=== PATIENT | male | born 1970 | race Caucasian/White ===

== ENCOUNTER → 2022-09-08 10:35 | Outpatient (CLI) | payer BC, SELFPAY ==
--- NOTE | 2022-09-08 10:38 | XR_ITS ---
FINAL REPORT CLINICAL HISTORY: suspected pna FINDINGS: PA and lateral views of the chest are obtained. There is no prior exam for comparison. The cardiac and mediastinal silhouettes are within normal limits. The lungs are clear. There is no pleural effusion, pneumothorax, or acute osseous abnormality. IMPRESSION: No radiographic evidence of acute cardiac or pulmonary disease. Reviewed, Interpreted and Dictated by Krys Armijo MD Transcribed by Mey Nesbitt Authenticated and [facility]
== END ==
PROVIDERS: PCP Family Medicine; Visit Provider Nurse Practitioner Family
DX: J18.9 Pneumonia, unspecified organism (principal)
CPT/HCPCS: 71046

== ENCOUNTER 2023-03-19 12:17 | Observation (INO) | payer BC, SELFPAY ==
[2023-03-19] VITALS (8 sets, daily range): BP systolic 125–144; BP diastolic 57–83; PULSE 94–104; RESP 16–18; TEMP 36.6–37.7; O2SAT 93–100; BMI 42.2; BMI 41.0
--- NOTE | 2023-03-19 12:51 | HMH.EDGENADL ---
Discharge Plan Disposition Patient Disposition: Admitted As Inpatient Clinical Impressions Clinical Impression: Cellulitis Discharge ED Provider: Alexey Gamez General Adult HPI General Chief complaint: Extremity Injury, Lower Stated complaint: referred by physican for blood clot,r lower leg Time Seen by Provider: 03/19/23 12:37 Mode of Arrival: Ambulatory Source of Information: Patient Limitations: No Limitations Description of Symptoms (Recalled from ER Triage Doc. by RN): Patient reports being seen at a [facility] in [place] today in regards to cellulitis in his right lower leg. While being seen there they notice that he was tender in his calf muscle and referred him to this er to get evaluated for a DVT. History of Present Illness HPI narrative: Patient is a 52-year-old male who presents emergency department for evaluation of swelling of his leg. Patient states that he was seen in urgent care today in [place] for redness and swelling of his distal lower extremity for which she was diagnosed with cellulitis, given 2 g of ceftriaxone and prescription for Keflex. Provider urgent care was concerned for possible DVT given that he has achiness of his calf and proximal right leg. Patient denies chest pain, shortness of breath, asymmetric swelling of the proximal lower extremities, discoloration of the proximal lower extremities, other acute complaints at this time. Related Data Home Medications Medication Instructions Recorded Confirmed empagliflozin 25 mg tablet 25 mg PO DAILY Diabetes 09/08/22 03/19/23 (Jardiance) metformin 1,000 mg tablet 1,000 mg PO BIDWMEAL Diabetes 09/08/22 03/19/23 amlodipine 10 mg tablet 10 mg PO DAILY High Blood Pressure 03/19/23 03/19/23 cephalexin 500 mg tablet 500 mg PO QID Infection 03/19/23 03/19/23 glipizide 10 mg tablet, extended 10 mg PO DAILY Diabetes 03/19/23 03/19/23 release 24 hr lisinopril 20 1 tab PO DAILY High Blood Pressure 03/19/23 03/19/23 mg-hydrochlorothiazide 12.5 mg tablet meloxicam 15 mg tablet 15 mg PO DAILY Pain 03/19/23 03/19/23 omeprazole 20 mg capsule,delayed 20 mg PO DAILY Acid Reflux 03/19/23 03/19/23 release simvastatin 80 mg tablet 80 mg PO HS Cholesterol 03/19/23 03/19/23 tamsulosin 0.4 mg capsule 0.4 mg PO DAILY Prostate 03/19/23 03/19/23 tirzepatide 15 mg/0.5 mL 15 mg SQ WEEKLY Weight Loss 03/19/23 03/19/23 subcutaneous pen injector (Hussein) Allergies Allergy/AdvReac Type Severity Reaction Status Date / Time doxycycline [DOXYCYCLINE] Allergy Unknown Verified 03/19/23 14:25 Penicillins [PENICILLINS] Allergy Unknown Verified 03/19/23 14:25 [facility] Disclaimer: The information contained in this section may have been updated after the patient was seen, as this information can be updated by other users. Social History (Updated 09/08/22 @ 10:06 by Marya Wilson MA) Smoking Status: Never smoker alcohol intake: never substance use type: denies use current occupational status: employed Travel in the last 8 weeks: None ROS Obtained: Yes Systems reviewed as appropriate & no additional complaints except as documented Physical Exam General General appearance: alert and in no apparent distress Head Head exam: atraumatic and normocephalic Eye Eye exam: Present PERRL and EOMI ENT ENT exam: Present mucous membranes moist Neck Neck exam: Present normal inspection Chest Chest inspection: Present normal inspection and symmetric chest wall rise Respiratory Respiratory exam: Present normal lung sounds bilaterally; Absent respiratory distress Cardiovascular Cardiovascular exam: Present regular rate and normal rhythm Abdominal Exam Abdominal exam: Present soft; Absent tenderness Extremities Exam Extremities exam: Present other (Large area of deep well-demarcated erythema over the right hernández) Neurological Exam Neurological exam: Present alert Psychiatric Psychiatric exam: Present normal affect Skin Skin exam: Present warm
--- NOTE | 2023-03-19 13:04 | CT_ITS ---
PROCEDURE INFORMATION: Exam: CTA Chest With Contrast Exam date and time: 03/19/2023 2:05 PM Age: 52 years old Clinical indication: Shortness of breath and other: Swellign and redness to right lower leg; Additional info: Tachy, leg pain TECHNIQUE: Imaging protocol: Computed tomographic angiography of the chest with contrast. Exam focused on the arteries. 3D rendering (Not supervised by radiologist): MIP and/or 3D reconstructed images were created by the technologist. Radiation optimization: All CT scans at this facility use at least one of these dose optimization techniques: automated exposure control; mA and/or kV adjustment per patient size (includes targeted exams where dose is matched to clinical indication); or iterative reconstruction. Contrast material: ISO 370; Contrast volume: 75 ml; Contrast route: INTRAVENOUS (IV); REPORTING DATA: Count of CT and Cardiac NM exams in prior 12 months: This patient has received 0 known CTs and 0 known cardiac nuclear medicine studies in the 12 months prior to the current study. COMPARISON: CR XR CHEST 2V 09/08/2022 10:50 AM FINDINGS: Pulmonary arteries: TheMain pulmonary trunk, right and left pulmonary arteries, interlobar branches and 1st order segmental branches are adequately opacified without filling defects or other evidence of acute pulmonary embolism. However more distal subsegmental branches cannot be adequately assessed due to technical limitations of the study. Aorta: Unremarkable. No aortic aneurysm. No aortic dissection. Lungs: Lung volumes are decreased likely in part due to body habitus. No infiltrates or overt CHF Pleural spaces: Unremarkable. No pneumothorax. No pleural effusion. Heart: Heart is not significantly enlarged. There are mild calcifications of the coronary arteries. No significant pericardial effusion. Lymph nodes: Unremarkable. No enlarged lymph nodes. Bones/joints: Unremarkable. No acute fracture. Soft tissues: Unremarkable. IMPRESSION: Technically limited but negative CT angiogram of the chest. No evidence of acute pulmonary embolism to major branches of the pulmonary vascular tree.
--- NOTE | 2023-03-19 13:32 | PC.NURSE ---
confirmed with [facility] in lab they have received pts blood specimens
[2023-03-19 13:40] LABS: Basophils # 0.1 K/mm3 (0-0.2); Basophils % 0.6 % (0.1-2.0); Eosinophils # 0.2 K/mm3 (0.0-0.4); Hematocrit 50.1 % (42.0-52.0); Hemoglobin 15.7 g/dL (14.1-18.0); Lymphocytes # 1.6 K/mm3 (0.7-4.5); Lymphocytes % 20.6 % (10-50); Mean Corpuscular HGB Conc 31.4 g/dL (31.8-35.4); Mean Corpuscular Hemoglobin 25.9 pg (27.0-31.2); Mean Corpuscular Volume 82.6 fl (80-94); Mean Platelet Volume 9.1 fl (7.4-10.4); Monocytes # 0.7 K/mm3 (0.1-1.0); Neutrophils # 5.2 K/mm3 (1.8-7.8); Neutrophils % 67.8 % (37.0-80.0); Platelet Count 252 K/mm3 (142-424); Red Blood Count 6.07 M/mm3 (4.60-6.20); Red Cell Distribution Width 16.1 % (11.5-17.5); White Blood Count 7.6 K/mm3 (4.8-10.8)
--- NOTE | 2023-03-19 13:40 | HMH.PHAINT1 ---
Pharmacy Intervention Comments: MEDICATION RECONCILIATION COMPLETED ON PATIENT USING EXTERNAL FILL HISTORY FROM PHARMACY. -BARRY SHOEMAKER, JEREMYD
--- NOTE | 2023-03-19 13:41 | PC.NURSE ---
Rounded on pt. No needs voiced at this time. Call light within reach.
[2023-03-19 13:42] LABS: Chloride 102 mmol/L (98-107); Potassium 3.7 mmoL/L (3.5-5.1); Sodium 136 mmol/L (136-145)
[2023-03-19 13:44] LABS: Blood Urea Nitrogen 14 mg/dl (9-20)
[2023-03-19 13:45] LABS: Alanine Aminotransferase 39 U/L (12-78); Albumin Level 3.9 g/dl (3.5-5.0); Albumin/Globulin Ratio 1.1 (1.1-1.8); Alkaline Phosphatase 95 U/L (38-126); Anion Gap 17.7 mEq/L (5-15); Aspartate Amino Transferase 32 U/L (17-59); Bilirubin,Total 0.5 mg/dl (0.2-1.3); Calcium 9.3 mg/dl (8.4-10.2); Carbon Dioxide 20 mmol/L (22.0-30.0); Creatinine Clearance Estimated 111 mL/min (50-200); Estimated Glomerular Filt Rate 89 ml/min (>60); GFR (African American) 108 ML/MIN (>60); Globulin 3.7 g/dL (1.3-3.2); Glucose 219 mg/dl (74-100); Total Protein,Serum 7.6 g/dl (6.3-8.2)
[2023-03-19 13:50] LABS: Lactic Acid 2.3 mmol/L (0.7-2.1)
--- NOTE | 2023-03-19 13:54 | EXP.PHA.CONS ---
Pharmacy Consult Date: 03/19/23 Time: 13:54 Referring provider: DR. DANIEL Reason for Consult:: VANCOMYCIN DOSING Allergies Allergy/AdvReac Type Severity Reaction Status Date / Time doxycycline [DOXYCYCLINE] Allergy Unknown Unverified 09/08/22 10:04 Penicillins [PENICILLINS] Allergy Unknown Unverified 09/08/22 10:04 Home Medications Medication Instructions Recorded Confirmed Type empagliflozin 25 mg tablet 25 mg PO DAILY Diabetes 09/08/22 03/19/23 History (Jardiance) metformin 1,000 mg tablet 1,000 mg PO BIDWMEAL Diabetes 09/08/22 03/19/23 History amlodipine 10 mg tablet 10 mg PO DAILY High Blood Pressure 03/19/23 03/19/23 History cephalexin 500 mg tablet 500 mg PO QID Infection 03/19/23 03/19/23 History glipizide 10 mg tablet, extended 10 mg PO DAILY Diabetes 03/19/23 03/19/23 History release 24 hr lisinopril 20 1 tab PO DAILY High Blood Pressure 03/19/23 03/19/23 History mg-hydrochlorothiazide 12.5 mg tablet meloxicam 15 mg tablet 15 mg PO DAILY Pain 03/19/23 03/19/23 History omeprazole 20 mg capsule,delayed 20 mg PO DAILY Acid Reflux 03/19/23 03/19/23 History release simvastatin 80 mg tablet 80 mg PO HS Cholesterol 03/19/23 03/19/23 History tamsulosin 0.4 mg capsule 0.4 mg PO DAILY Prostate 03/19/23 03/19/23 History tirzepatide 15 mg/0.5 mL 15 mg SQ WEEKLY Weight Loss 03/19/23 03/19/23 History subcutaneous pen injector (Mounjaro) New Prescriptions to Start Prescriptions: Height: 1.85 m Weight: 145.15 kg Laboratory Results:: Laboratory Results - last 24 hr 03/19/23 13:17: WBC 7.6, RBC 6.07, Hgb 15.7, Hct 50.1, MCV 82.6, MCH 25.9 L, MCHC 31.4 L, RDW 16.1, Plt Count 252, MPV 9.1, Neut % (Auto) 67.8, Lymph % (Auto) 20.6, Roosevelt % (Auto) 9.0, Eos % (Auto) 2.0, Baso % (Auto) 0.6, Neut # (Auto) 5.2, Lymph # (Auto) 1.6, Roosevelt # (Auto) 0.7, Eos # (Auto) 0.2, Baso # (Auto) 0.1, Sodium 136, Potassium 3.7, Chloride 102, Carbon Dioxide 20 L, Anion Gap 17.7 H, BUN 14, Creatinine 0.90, Estimated Creat Clear 111, Estimated GFR 89, Est GFR ( Amer) 108, Glucose 219 H, Lactate 2.3 H, Calcium 9.3, Total Bilirubin 0.5, AST 32, ALT 39, Alkaline Phosphatase 95, Total Protein 7.6, Albumin 3.9, Globulin 3.7 H, Albumin/Globulin Ratio 1.1 Assessment and Plan Assessment and plan all Dx Assessment and Plan for all problems:: Pharmacokinetic dosing service Objective: Patient: Floor: Age: 52 yo Serum creatinine: 0.90 mg/dL Height: 73.0 Inches Weight (kg): 145.2 Assessment: IBW (kg): 79.90 Dosing wt(kg): 145.2 Estimated Creatinine clearance (ml/min): 111.0 CRCL method: Cockcroft and Gault using ibw(default). Drug selected: Vancomycin Loading dose (mg): Vd (liters): 116.2 (factor used: 0.8 L/kg) Young (hr-1): 0.097 Half life (hrs): 7.15 CLvanco=?? 11.271 L/hr Recommended dose: 2000 mg Interval: 8 hrs Infusion time (hrs): 2.0 Predicted peak (mcg/mL): 29.0 Predicted trough (mcg/mL): 16.20 Total body weight is being used for vancomycin dosing. Recommendations: Give Vancomycin 2000 mg q 8 hrs with an expected Cpeak of 29.0 mcg/ml and an expected Ctrough of 16.20 mcg/ml AUC 0-24 /KENDELL Data: KENDELL 0.5 mcg/mL:?? AUC/KENDELL:? 1064.7 KENDELL 1.0 mcg/mL:?? AUC/KENDELL:? 532.3 --------- KENDELL 1.5 mcg/mL:?? AUC/KENDELL:? 354.9 KENDELL 2.0 mcg/mL:?? AUC/KENDELL:? 266.2 Thank you for the consult, will continue to follow. -JEREMY FORDED
--- NOTE | 2023-03-19 14:09 | PC.NURSE ---
Pt returned to room from RAD
--- NOTE | 2023-03-19 14:27 | PC.NURSE ---
no new complaints/ gave patient a bottle of water
--- NOTE | 2023-03-19 14:50 | PC.NURSE ---
Rounded on pt. No needs voiced at this time.
--- NOTE | 2023-03-19 15:04 | PC.NURSE ---
notified household refrigeration mechanic of admission
--- NOTE | 2023-03-19 15:14 | EXP.HP ---
History of Present Illness *Admission Date: 03/19/23 *Reason for visit:: leg pain and swelling *History of present illness: Mr. Nesbitt is a 52-year-old male with history of diabetes and obesity. States that he has had increased swelling and pain in his right leg for the past 2 to 3 days. Saw his PCP last Monday who recommended getting an ultrasound of his leg but did not start him on any antibiotics. He went to the [facility] today where he was given 2 g of ceftriaxone and started on Keflex orally. Complains of increasing redness and a well-defined region right lower leg mainly on the hernández. States he is also had pain up to his groin for the past several days preceding the redness. Denies any known history of DVTs. Has had cellulitis before, was concerned that is what this might be. Denies any significant trauma but did have exposure to chiggers with recent yard work over the past week or 2. Denies any fevers, chest pain, shortness of breath, nausea or vomiting. Work-up in the ER concerning for well-defined redness, lactate of 2.3, and cellulitis versus DVT. ER requested admission for observation overnight, IV antibiotics, and ultrasound in the morning to rule out DVT. On arrival to the floor, patient is hemodynamically stable on room air. [facility] Disclaimer: The information contained in this section may have been updated after the patient was seen, as this information can be updated by other users. Medical History (Updated 03/19/23 @ 17:28 by Kuldeep Munoz MD) Diabetes Hypertension Self-catheterizes urinary bladder Surgical History History of dilation of urethra Family History Family history of hypertension Family history of hyperlipidemia Social History Smoking Status: Never smoker alcohol intake: never substance use type: denies use current occupational status: employed Travel in the last 8 weeks: None Review of Systems Review of Systems Review of systems (narrative): 14 point review of systems performed, pertinent positives and negatives as per [facility] Meds Home Medications and Allergies Home Medications Medication Instructions Recorded Confirmed Type empagliflozin 25 mg tablet 25 mg PO DAILY Diabetes 09/08/22 03/19/23 History (Jardiance) metformin 1,000 mg tablet 1,000 mg PO BIDWMEAL Diabetes 09/08/22 03/19/23 History amlodipine 10 mg tablet 10 mg PO DAILY High Blood Pressure 03/19/23 03/19/23 History aspirin 81 mg tablet 81 mg PO DAILY heart health 03/19/23 03/19/23 History glipizide 10 mg tablet, extended 10 mg PO DAILY Diabetes 03/19/23 03/19/23 History release 24 hr lisinopril 20 1 tab PO DAILY High Blood Pressure 03/19/23 03/19/23 History mg-hydrochlorothiazide 12.5 mg tablet meloxicam 15 mg tablet 15 mg PO DAILY Pain 03/19/23 03/19/23 History omeprazole 20 mg capsule,delayed 20 mg PO DAILY Acid Reflux 03/19/23 03/19/23 History release simvastatin 80 mg tablet 80 mg PO HS Cholesterol 03/19/23 03/19/23 History tamsulosin 0.4 mg capsule 0.4 mg PO DAILY Prostate 03/19/23 03/19/23 History tirzepatide 15 mg/0.5 mL 15 mg SQ WEEKLY Weight Loss 03/19/23 03/19/23 History subcutaneous pen injector (Hussein) New Prescriptions to Start Prescriptions: Allergies Allergy/AdvReac Type Severity Reaction Status Date / Time doxycycline [DOXYCYCLINE] Allergy Unknown Verified 03/19/23 14:25 Penicillins [PENICILLINS] Allergy Unknown Verified 03/19/23 14:25 Exam Data for Last 24 hours Vital signs and Labs for Last 24 Hours: Temp Pulse Resp BP Pulse Ox O2 Del Method 97.9 F 99 H 16 136/81 96 Room Air 03/19/23 12:19 03/19/23 14:30 03/19/23 12:19 03/19/23 14:30 03/19/23 14:30 03/19/23 14:30 Laboratory Results - last 24 hr 03/19/23 13:17: WBC 7.6, RBC 6.07, Hgb 15.7, Hct 50.1, MCV 82.6, MCH 25.9 L, MCHC 31.4
--- NOTE | 2023-03-19 15:21 | PC.NURSE ---
Report called to Elsie on Med Surg.
[2023-03-19 15:39] LABS: Hemoglobin A1C 7.7 % (4.0-6.0)
--- NOTE | 2023-03-19 15:44 | PC.NURSE ---
Rounded on patient. No needs at this time. Patient resting.
[2023-03-19 17:02] LABS: POC Glucose,Bedside 134 (70-110)
[2023-03-19 17:35] LABS: Reflex Lactic Add Lactic Reflex
[2023-03-19 18:05] LABS: Lactic Acid Follow Up (RFLX 1) 1.1 mmol/L (0.7-2.1)
[2023-03-19 20:41] LABS: POC Glucose,Bedside 238 (70-110)
[2023-03-20 04:00] VITALS: BP 143/76; PULSE 99; RESP 18; TEMP 36.7; O2SAT 95; BMI 41.6
--- NOTE | 2023-03-20 04:23 | PC.NURSE ---
pt lower extremity swollen, red and hot to the touch, pt denies pain. us of extremity ordered in am. pt received abx's and lovenox
[2023-03-20 05:58] LABS: POC Glucose,Bedside 125 (70-110)
[2023-03-20 06:47] LABS: Basophils # 0.1 K/mm3 (0-0.2); Basophils % 0.7 % (0.1-2.0); Eosinophils # 0.2 K/mm3 (0.0-0.4); Eosinophils % 3.1 % (0.1-12.0); Hematocrit 48.2 % (42.0-52.0); Hemoglobin 15.1 g/dL (14.1-18.0); Lymphocytes # 1.7 K/mm3 (0.7-4.5); Lymphocytes % 25.2 % (10-50); Mean Corpuscular HGB Conc 31.3 g/dL (31.8-35.4); Mean Corpuscular Hemoglobin 25.9 pg (27.0-31.2); Mean Corpuscular Volume 82.8 fl (80-94); Mean Platelet Volume 9.1 fl (7.4-10.4); Monocytes # 0.7 K/mm3 (0.1-1.0); Monocytes % 9.9 % (1.7-9.3); Neutrophils # 4.2 K/mm3 (1.8-7.8); Neutrophils % 61.2 % (37.0-80.0); Platelet Count 237 K/mm3 (142-424); Red Blood Count 5.82 M/mm3 (4.60-6.20); Red Cell Distribution Width 16.2 % (11.5-17.5); White Blood Count 6.9 K/mm3 (4.8-10.8)
[2023-03-20 07:02] LABS: Alanine Aminotransferase 26 U/L (12-78); Albumin Level 3.6 g/dl (3.5-5.0); Albumin/Globulin Ratio 1.1 (1.1-1.8); Alkaline Phosphatase 101 U/L (38-126); Anion Gap 12.7 mEq/L (5-15); Aspartate Amino Transferase 22 U/L (17-59); Bilirubin,Total 0.2 mg/dl (0.2-1.3); Blood Urea Nitrogen 13 mg/dl (9-20); Calcium 8.7 mg/dl (8.4-10.2); Carbon Dioxide 24 mmol/L (22.0-30.0); Chloride 104 mmol/L (98-107); Creatinine Clearance Estimated 121 mL/min (50-200); Estimated Glomerular Filt Rate 102 ml/min (>60); GFR (African American) 124 ML/MIN (>60); Globulin 3.4 g/dL (1.3-3.2); Glucose 133 mg/dl (74-100); Potassium 3.7 mmoL/L (3.5-5.1); Sodium 137 mmol/L (136-145)
[2023-03-20 08:00] VITALS: BP 147/88; PULSE 93; RESP 16; TEMP 36.3; O2SAT 98
[2023-03-20 10:53] LABS: POC Glucose,Bedside 123 (70-110)
--- NOTE | 2023-03-20 11:38 | EXP.DC.SUM ---
General Admission date:: 03/19/23 Discharge date: 03/20/23 HPI HPI HPI: Mr. Nesbitt is a 52-year-old male with history of diabetes and obesity. States that he has had increased swelling and pain in his right leg for the past 2 to 3 days. Saw his PCP last Monday who recommended getting an ultrasound of his leg but did not start him on any antibiotics. He went to the [facility] today where he was given 2 g of ceftriaxone and started on Keflex orally. Complains of increasing redness and a well-defined region right lower leg mainly on the hernández. States he is also had pain up to his groin for the past several days preceding the redness. Denies any known history of DVTs. Has had cellulitis before, was concerned that is what this might be. Denies any significant trauma but did have exposure to chiggers with recent yard work over the past week or 2. Denies any fevers, chest pain, shortness of breath, nausea or vomiting. Work-up in the ER concerning for well-defined redness, lactate of 2.3, and cellulitis versus DVT. ER requested admission for observation overnight, IV antibiotics, and ultrasound in the morning to rule out DVT. On arrival to the floor, patient is hemodynamically stable on room air. Hospital Course Hospital Course Hospital Course: 52-year-old male with swelling and redness of his right leg. Concern for erysipelas versus DVT. Started on empiric antibiotics in the ED. Discussed case with ER physician, request admission for continued IV antibiotics, monitoring of clinical response and improvement, along with need for ultrasound that we are unable to perform on the weekend. Monitored overnight. Clinically improved with decreased redness and swelling of his leg with IV antibiotics. Ultrasound obtained showing no DVT. Medically stable for discharge home to complete treatment with oral antibiotics. Problems addressed during admission as follows: Erysipelas versus cellulitis versus DVT -Patient received 2 g ceftriaxone prior to admission. Administered at [facility] prior to coming to the hospital. Was started on vancomycin overnight. Had significant improvement in redness and swelling. Labs improved with stable leukocytosis. Improvement in pain and swelling. Was initiated on empiric Lovenox until ultrasound obtained. Ultrasound negative for DVT. No indication for further anticoagulation. Continue antibiotics with Keflex sent prior to arrival to hospital. Close follow-up with PCP within the next weeks to evaluate for resolution. Diabetes -A1c 7.7. Continue fingersticks and sliding scale insulin ACHS During admission. Continued Jardiance 25 mg daily during admission. Resume home regimen of glipizide, metformin, Mounjaro. Hypertension: Continue home lisinopril HCTZ combo. Held amlodipine. Continue home omeprazole for GERD Holding statin given right lower extremity pain Continue home tamsulosin 0.4 mg daily with in and out cathing per home regimen. Complete antibiotics with Keflex previously sent. Exam Data for Last 24 hours Vital signs and Labs for Last 24 Hours: Temp Pulse Resp BP Pulse Ox O2 Del Method 97.4 F L 93 H 16 147/88 H 98 Room Air 03/20/23 08:00 03/20/23 08:00 03/20/23 08:00 03/20/23 08:00 03/20/23 08:00 03/20/23 09:00 Laboratory Results - last 24 hr 03/19/23 13:17: WBC 7.6, RBC 6.07, Hgb 15.7, Hct 50.1, MCV 82.6, MCH 25.9 L, MCHC 31.4 L, RDW 16.1, Plt Count 252, MPV 9.1, Neut % (Auto) 67.8, Lymph % (Auto) 20.6, Darke % (Auto) 9.0, Eos % (Auto) 2.0, Baso % (Auto) 0.6, Neut # (Auto) 5.2, Lymph # (Auto) 1.6, Darke # (Auto) 0.7, Eos # (Auto) 0.2, Baso # (Auto) 0.1, Sodium 136, Potassium 3.7, Chloride 102, Carbon Dioxide 20 L, Anion Gap 17.7 H, BUN 14, Creatinine 0.90, Estimated Creat Clear 111, Estimated GFR 89, Est GFR ( Amer) 108, Glucose 219 H, Hemoglobin A1c 7.7 H, Lactate 2.3 H, Calcium 9.3, Total Bilirubin 0.5, AST 32, ALT 39, Alkaline Phosphatase 95, Total Protein 7.6, Albumin 3.9, Globulin 3.7
--- NOTE | 2023-03-20 17:30 | CA_ITS ---
FINAL REPORT TECHNIQUE: Color Doppler, duplex Doppler and compression sonography of the right lower extremity venous system was performed. CLINICAL HISTORY: swelling, DVT? COMPARISON: None FINDINGS: There is no evidence of deep venous thrombosis from the level of the groin to the calf. The veins are patent and compressible. IMPRESSION: No evidence of deep venous thrombosis right lower extremity. Reviewed, Interpreted and Dictated by Adrian Rdz III, MD Transcribed by Shruthi Blas Authenticated and [facility]
--- NOTE | 2023-03-21 13:44 | CARE MANAGER ---
Contacted patient related to hospital discharge. Patient aware of medication change and follow up doctor's appointment. Denies questions or concerns. EMILEE Grace
== END 2023-03-20 12:49 | disposition home or self-care (01) ==
LOC: ER 13:22 → 2ND 15:51
PROVIDERS: Admitting Provider Internal Medicine Adolescent Medicine; Emergency Provider Emergency Medicine; PCP Family Medicine; Visit Provider Internal Medicine Adolescent Medicine
DX: L03.115 Cellulitis of right lower limb (principal); I10 Essential (primary) hypertension; E11.65 Type 2 diabetes mellitus with hyperglycemia; Z79.4 Long term (current) use of insulin; Z79.899 Other long term (current) drug therapy; E66.01 Morbid (severe) obesity due to excess calories; Z68.41 Body mass index [BMI] 40.0-44.9, adult
CPT/HCPCS: 36415; 71275; 80053; 82962; 83036; 83605; 83735; 85025; 87040; 93971; 99285; G0378; J0696; J3370; Q9967

== ENCOUNTER 2025-01-07 08:42 | Outpatient (CLI) | payer BC, SELFPAY ==
--- NOTE | 2025-01-07 08:45 | XR_ITS ---
FINAL REPORT CLINICAL HISTORY: Foot Pain x 1 month COMPARISON: None FINDINGS: RIGHT FOOT Three views demonstrate no acute fracture or dislocation. There are minimal hypertrophic changes over the dorsal aspect of the intertarsal joints. No acute soft tissue abnormality is seen. There is a small plantar spur. IMPRESSION: Degenerative changes without acute bony abnormality. Reviewed, Interpreted and Dictated by Paresh Clancy MD Transcribed by Carol Fenton Authenticated and [facility]
--- NOTE | 2025-01-07 08:45 | XR_ITS ---
FINAL REPORT CLINICAL HISTORY: Foot Pain x 1 month COMPARISON: None FINDINGS: LEFT FOOT Three views demonstrate no acute fracture or dislocation. There is a prominent osteophyte along the dorsal aspect of the talonavicular joint. There is a moderate plantar spur. There is an os trigonum measuring 9 mm. No acute soft tissue abnormality is seen. IMPRESSION: No acute bony abnormality. Reviewed, Interpreted and Dictated by Paresh Clancy MD Transcribed by Carol Fenton Authenticated and [facility]
--- OUTSIDE RECORDS SUMMARY | 2025-01-07 08:57 | XMS_ITS | Data Portability ---
Author Organization [facility] BOOGIE Melendrez [facility] Address [address] [place] [address] Care Team Providers Care Private Duty Rn Name Role Phone TAMICALUCINDA Referring Provider Assessment No assessment recorded. Plan of Treatment Reminders Order Date Submit Date Provider Last Modified By Organization Details Last Modified Time Details Appointments None record ed. Lab None record ed. Referral None record ed. Procedures None record ed. Surgeries None record ed. Imaging None record ed. Medication Orders None record ed. Patient TargetsNo targets recorded. Patient Instructions Encounter Date Encounter Id Patient Instructions Last Modified By Organization Details Last Modified Time 11/29/2017 [id number] Lumbar MRI w/o from 11/14/17 reviewed showing diffuse degenerative disc disease with mild central canal stenosis at L5-S1 and moderate central canal stenosis at L4-L5. Moderate foraminal stenosis at L4-L5. Spent 20 total minutes with the patient today in counseling regarding information documented in my assessment and plan above. The time represents more than 50% of the encounter. [email or web address] Not available 12/04/2017 10:21:33 Reason for Referral None Reported. Medical Equipment None Reported. Allergies Allergen ID Allergen Name Allergen Category Reaction Reaction Severity Criticality Documentation Date Start Date Code Code System Note Provider Name and Address Organization Details Recorded Time 263463 Product containin g penicilli n (product) medicatio n Not available Not available Not available 11/29/2017 21380 8001 SNOMED Lizzy chávez [facility] 8 10:57:07 Medications Name Sig Start Date Stop Date Status Note LastModified by Organization Details LastModified Time lisinopril 20 mg-hydrochlorothiaz scott 12.5 mg tablet active Not Available Not Mireya ilable Not Available meloxicam 15 mg tablet active Not Available Not Available Not Available amlodipine 5 mg tablet active Not Available Not Available Not Available tramadol 50 mg tablet active Not Available Not Available Not Available simvastatin 40 mg tablet active Not Available Not Available Not Available meloxicam 7.5 mg tablet active Not Available Not Available Not Available metformin 1,000 mg tablet active Not Available Not Available Not Available omeprazole 20 mg capsule,delayed release active Not Available Not Available Not Available diclofenac sodium 75 mg tablet,delayed release active Not Available Not Available Not Available methylprednisolone 4 mg tablets in a dose pack active Not Available Not Available No t Available cyclobenzaprine 5 mg tablet active Not Available Not Available No t Available Tradjenta 5 mg tablet active Not Available Not Available Not Available Jardiance 25 mg tablet active Not Available Not Available Not Available Trulicity 1.5 mg/0.5 mL subcutaneous pen injector active Not Available Not Available Not Available Vitals Date Recorded Body height Body mass index (BMI) Body weight Systolic blood pressure Diastolic blood pressure Provider Name and Address Organization Details Last Updated DateTime 11/29/2017 185.42 cm 42.4 kg/m2 992488.1 5 g 140 mm[Hg] 90 mm[Hg] Lizzy Singh [facility] 8 10:56:54 Social History Question Answer Notes LastModified by Organizat ion Details LastModified Time Tobacco Smoking Status Never Smoker Lizzy Singh [facility] 11/29/2017 10:57:15 What Was The Date Of Your Most Recent Tobacco Screening? 11/29/2017 Information n ot available 08/27/2019 Sex: Unknown Functional Status None recorded. Mental Status None recorded. Family History Nothing Reported. Medical History Condition Response Diabetes Y Arthritis Y High Cholesterol Y Hypertension Y Past Encounters Encounter ID Performer Location Encounter Start Date Encounter Closed Date Diagnosis/Indication Diagnosis SNOMED-CT Code Diagnosis ICD10 Code Diagnosis Note [id number] PARMINDER CRAWFORD PA-C [facility] CL[facility] [address] [place] [address] 11/29/2017 09:56:48 12/05/2017 11:36:34 Pain of right hip joint [id number] 17385 M25.551 Mr. Nesbitt does have a prominent disc bulge at L4-5 with moderate central canal stenosis at and moderate foraminal stenosis, but this is unlikely to be causing his right hip pain or right ankle pain. We will order right hip xrays. We will refer him to an orthopedic doctor for evaluation and treatment. Pain of cl int of ankle and/or foot [id number] M25.571 We will order right ankle xrays. We will refer him to an orthopedic doctor for evaluation and treatment. He will follow up as needed. He is happy with the plan. The patient was seen and examined by Dr. Cadet and myself. He agrees with the plan as stated above. Health Concerns Section Related Observation LastModified by Organization Detai ls LastModified Time None Recorded Concern Status LastModified by Organization Details LastModified Time None Recorded Advance Directives Directive None Recorded Payers Insurance Date Sequence Insurance Name Policy Number Policy [place] Covered Member ID [place] Member ID Guarantor Name 12/19/2017 1 [place] [id number] Carisa Nesbitt [id number] Apolinar Nesbitt Notes Date Note Type Note Provider Name and Address Organization Details Recorded Time 11/29/2017 text/html Mr. Nesbitt is a [age] YO WM here today as a new patient referral from Dr. Lucinda Lo for 6 week hx of pain in the right hip and right ankle. Rates the hip pain as 5/10 and the ankle pain as 8/10 and both are sharp/tight in nature. Both are better with sitting and worse with standing and walking. If his daughter pulls traction on his right leg, his hip pain decreases. He states he occasionally has achy LBP, but does not think the hip or ankle pain are related to the back pain. He denies any radicular leg symptoms or radiating pain from the back. He fell from a truck last year and suffered an L1 compression fracture which was treated with a brace. Denies any recent trauma since symptom onset. Denies b/b incontinence and saddle paresthesias. He has been to the chiropractor for his back, taken a medrol dospak, used NSAIDs x 6 weeks, and had a steriod injection from his PCP which have not helped his symptoms. He presents with a lumbar MRI w/o from 11/14/17. PARMINDER CARWFORD PA-C [facility] [place], [address], [facility] 12/04/2017 10:22:19
--- OUTSIDE RECORDS SUMMARY | 2025-01-07 08:57 | XMS_ITS | Clinical Summary ---
Author Organization [facility] Address [address] [place] [address] Care Team Providers Care Title Closer Name Role Phone Pascual Mckeon MD Primary Care Provider [phone] Allergies Active Allergy Reactions Criticality Noted Date Comments Penicillins Rash Low 12/30/2021 Medications triamcinolone (Kenalog) 0.1 % cream 2 Active Mounjaro 2.5 MG/0.5ML solution pen-injector solution pen-injector ADMINISTER 2.5 MG UNDER THE SKIN 1 TIME EVERY WEEK DIRECTED 3 Active tamsulosin (Flomax) 0.4 MG 24 hr capsule 3 Active simvastatin (Zocor) 80 MG tablet Take 1 tablet (80 mg) by mouth every night. 3 Active sildenafil (Viagra) 100 MG tablet Take 1 tablet (100 mg) by mouth if needed. Active pioglitazone (Actos) 30 MG tablet 2 Active omeprazole (PriLOSEC) [address] capsule Take 1 capsule (20 mg) by mouth 1 (one) time each day. 3 Active metFORMIN (Glucophage) 1000 MG tablet Take 1 tablet (1,000 mg) by mouth 2 (two) times a day with meals. 3 Active meloxicam (Mobic) 15 MG tablet Take 1 tablet (15 mg) by mouth 1 (one) time each day. 3 Active lisinopril-hydr oCHLOROthiazide 20-12.5 MG tablet Take 1 tablet by mouth 1 (one) time each day. 3 Active HYDROcodone-evette taminophen ([place]) 5-325 MG tablet TAKE 1 TABLET BY MOUTH EVERY 6 TO 8 HOURS NEEDED FOR PAIN 3 Active glipiZIDE XL (Glucotrol XL) 10 MG 24 hr tablet Take 1 tablet (10 mg) by mouth 1 (one) time each day. 3 Active Jardiance 25 MG Take 1 tablet (25 mg) by mouth 1 (one) time each day. 3 Active cyclobenzaprine (Flexeril) 10 MG tablet TAKE 1 TABLET BY MOUTH EVERY 8 HOURS NEEDED FOR MUSCLE SPASMS 3 Active clobetasol (Temovate) 0.05 % ointment 3 Active aspirin 81 MG EC tablet Take 1 tablet (81 mg) by mouth 1 (one) time each day. Active amLODIPine (Norvasc) 10 MG tablet Take 1 tablet (10 mg) by mouth 1 (one) time each day. 3 Active Social History Tobacco Use Types Packs/Day Years Used Date Smoking Tobacco: Never Smokeless Tobacco: Never Tobacco Cessation:Counseling Given: Not Answered Alcohol Use Standard Drinks/Week Comments Never 0 (1 standard drink = 0.6 oz pur e alcohol) PHQ-2 Answer Date Recorded Patient Health Questionnaire-2 Score 0 01/23/2023 PHQ-2A Answer Date Recorded Patient Health Questionnaire-2 Score 0 01/23/2023 Sex and Gender Information Value Date Recorded Sex Assigned at Not on file Legal Sex Male 7:56 PM EDT Gender Identity Not on file Sexual Orientation Not on file Last Filed Vital Signs Vital Sign Reading Time Taken Comments Blood Pressure 126/81 01/23/2023 1:43 PM EDT Pulse 101 01/23/2023 1:43 PM EDT Temperature - - Respiratory Rate - - Oxygen Saturation - - Inhaled Oxygen Concentration - - Weight 144 kg (317 lb 7.4 oz) 01/23/2023 1:43 PM EDT Height 185.4 cm (6' 1 ) 01/23/2023 1:43 PM EDT Body Mass Index 41.88 01/23/2023 1:43 PM EDT Plan of Treatment Health Maintenance Due Date Last Done Comments [facility]-Depression Screening 1972 [facility]-Infant/Child/Adol SDOH Screenings 1972 [facility]- SDOH Screenings 1990 [facility]-Adult SDOH Screenings 1990 [facility]-DTaP,Tdap,and Td Vaccine s (1 - Tdap) 1991 [facility]-Hepatitis B Vaccines (1 of 3 - 19+ 3-dose series) 1991 CT Colonography 2017 Colonoscopy 2017 FIT-DNA 2017 FIT 2017 FOBT 2017 Sigmoidoscopy 2017 [facility]-Colorectal Cancer Screening 2017 [facility]-Pneumococcal Vaccine: 50 + Years (1 of 1 - PCV) 2022 [facility]-Zoster Vaccines (1 of 2) 2022 [id number] Vaccine (1 - 20 24-25 season) 2024 [facility]-Influenza Vaccine ([place] n Ended) 2025 HPV Vaccines Aged Out No longer eligi ble based on patient's age to complete this topic [facility]-HIB Vaccines Aged Out No longer e ligible based on patient's age to complete this topic [facility]-Hepatitis A Vaccines Aged Out No longer eligible based on patient's age to complete this topic [facility]-IPV Vaccines Aged Out No longer e ligible based on patient's age to complete this topic [facility]-Rotavirus Vaccines Aged Out No lo nger eligible based on patient's age to complete this topic Insurance [facility] [place] [id number] [employer] [id number] MOE Care Teams Title Closer Relationship Specialty Start Date End Date Pascual Mckeon MD [address] [place] [address] [address] [place] [address] PCP - General 11/20/20
--- OUTSIDE RECORDS SUMMARY | 2025-01-07 08:57 | XMS_ITS | Encounter Summary ---
Author Organization Healthcare Address [address] [place] [address] Care Team Providers Care Hose Tester Name Role Phone Pascual Mckeon MD Primary Care Provider [phone] Encounter Details Date Type Department Care Team (Late st Contact Info) Description 10/05/2022 Orders Only External Location [address] [place] [address] Provider, External Social History Tobacco Use Types Packs/Day Years Used Date Smoking Tobacco: Never Assessed Sex and Gender Information Value Date Recorded Sex Assigned at Not on file Legal Sex Male 7:56 PM EDT Gender Identity Not on file Sexual Orientation Not on file documented as of this encounter Plan of Treatment Not on file documented as of this encounter Procedures Procedure Name Priority Date/Time Associated Diagnosis Comments FL RUG 10/05/2022 2:24 PM EDT documented in this encounter Results * FL RUG (10/05/2022 2:24 PM EDT) Anatomical Region Laterality Modality Body Radiographic Mindy ging 10/05/2022 2:24 PM EDT us External Provider IMG FLUOROSCOPY PROCEDURES Fin al Result documented in this encounter Visit Diagnoses Not on filedocumented in this encounter Care Teams Hose Tester Relationship Specialty Start Date End Date Pascual Mckeon MD [address] [place] [address] [address] [place] [address] PCP - General 11/20/20 documented as of this encounter
== END 2025-01-07 23:59 | disposition home or self-care (01) ==
LOC: RAD 08:43
PROVIDERS: PCP Family Medicine; Visit Provider Podiatrist
DX: M19.071 Primary osteoarthritis, right ankle and foot (principal)
CPT/HCPCS: 73630

== ENCOUNTER 2025-01-13 17:48 | Emergency (ER) | payer BC, SELFPAY ==
--- OUTSIDE RECORDS SUMMARY | 2025-01-13 18:35 | XMS_ITS | Data Portability ---
Author Organization [facility] BOOGIE Melendrez [facility][NOTE 3] Address [address] [place] [address] Care Team Providers Care Benefits Consultant Name Role Phone LUCINDA LO Referring Provider Assessment No assessment recorded. Plan [...] By Organization Details Last Modified Time 11/29/2017 [id number] Lumbar MRI w/o from 11/14/17 reviewed showing diffuse degenerative disc disease with mild central canal stenosis at L5-S1 and moderate central canal stenosis at L4-L5. Moderate foraminal stenosis at L4-L5. Spent 20 total minutes with the patient today in counseling regarding information documented in my assessment and plan above. The time represents more than 50% of the encounter. [email or web address] Not available 12/04/2017 10:21:33 Reason for Referral None Reported. Medical Equipment None Reported. Allergies Allergen ID Allergen Name Allergen Category Reaction Reaction Severity Criticality Documentation Date Start Date Code Code System Note Provider Name and Address Organization Details Recorded Time 625773 Product containin g penicilli n (product) medicatio n Not available Not available Not available 11/29/2017 57817 8001 SNOMED Lizzy chávez [facility] 8 10:57:07 Medications Name Sig Start Date [...] Body mass index (BMI) Body weight Systolic And Diastolic Provider Name and Address Organization Details Last Updated DateTime 11/29/2017 185.42 cm 42.4 kg/m2 661143.15 g 140/90 mm[Hg] Lizzy Singh [facility] 11/29/2017 10:56:54 Social History Question Answer Notes LastModified by Organizat ion Details LastModified Time Tobacco Smoking Status Never Smoker Lizzy Singh [facility] 11/29/2017 10:57:15 What Was The Date Of Your Most Recent Tobacco Screening? 11/29/2017 Information n ot available 08/27/2019 Sex: Unknown Functional Status None recorded. Mental Status None recorded. Family History Nothing Reported. Medical History Condition Response Arthritis Y High Cholesterol Y Diabetes Y Hypertension Y Past Encounters Encounter ID Performer Location Encounter Start Date Encounter Closed Date Diagnosis/Indication Diagnosis SNOMED-CT Code Diagnosis ICD10 Code Diagnosis Note [id number] PARMINDER CRAWFORD PA-C [facility] [address] [place] [address] 11/29/2017 09:56:48 12/05/2017 11:36:34 Pain of right hip joint [id number] 00610 M25.551 Mr. Nesbitt does have a prominent disc bulge at L4-5 with moderate central canal stenosis at and moderate foraminal stenosis, but this is unlikely to be causing his right hip pain or right ankle pain. We will order right hip xrays. We will refer him to an orthopedic doctor for evaluation and treatment. Pain of cl int of ankle and/or foot [id number] M25.571 We will order right ankle xrays. [...] ID Guarantor Name 12/19/2017 1 [place] [id number] Carisa Nesbitt [id number] Apolinar Nesbitt Notes Date Note Type [...] a lumbar MRI w/o from 11/14/17. PARMINDER CRAWFORD PA-C [address] [place] [address], [phone], [facility] 12/04/2017 10:22:19
--- OUTSIDE RECORDS SUMMARY | 2025-01-13 18:35 | XMS_ITS | Clinical Summary ---
Author Organization [facility] Address [address] [place] [address] Care Team Providers Care Completion Manager Name Role Phone Pascual Mckeon MD Primary Care Provider [phone] Allergies Active Allergy Reactions Criticality Noted Date [...] time each day. 3 Active HYDROcodone-evette taminophen ([place]) 5-325 MG tablet TAKE 1 TABLET BY [...] 2022 [facility]-Zoster Vaccines (1 of 2) 2022 [id number] Vaccine (1 - 20 24-25 season) 2024 [facility]-Influenza Vaccine (#1) 2025 HPV Vaccines Aged Out No longer [...] patient's age to complete this topic Insurance [facility] [place] [id number] [employer] [id number] MOE Care Teams Completion Manager Relationship Specialty Start Date End Date Pascual Mckeon MD [address] [place] [address] [address] [place] [address] PCP - General 11/20/20
--- OUTSIDE RECORDS SUMMARY | 2025-01-13 18:35 | XMS_ITS | Encounter Summary ---
Author Organization Healthcare Address [address] [place] [address] Care Team Providers Care Program Manager Slp Name Role Phone Pascual Mckeon MD Primary Care Provider [phone] Encounter Details Date Type Department Care Team (Late st Contact Info) Description 10/05/2022 Orders Only External Location [address] [place] [address] Provider, External Social History Tobacco Use Types [...] on filedocumented in this encounter Care Teams Program Manager Slp Relationship Specialty Start Date End Date Pascual Mckeon MD [address] [place] [address] [address] [place] [address] PCP - General 11/20/20 documented as of this encounter
--- NOTE | 2025-01-13 18:45 | PC.NURSE ---
DR ANDREA AT BEDSIDE
[2025-01-13 18:46] VITALS: BP 144/81; PULSE 88; RESP 18; TEMP 36.8; O2SAT 98; BMI 44.9
--- NOTE | 2025-01-13 18:58 | ED_ITS ---
Discharge Plan Disposition Patient Disposition: Home, Self-Care Prescriptions Prescriptions: No Action simvastatin 80 mg tablet PO Patient Comments: TAKE 1 TABLET BY MOUTH ONCE DAILY AT NIGHT Humulin 70/30 U-100 KwikPen 100 unit/mL (70-30) insulin pen SQ Patient Comments: INJECT 80 UNITS SUBCUTANEOUSLY WITH BREAKFAST AND 40 WITH SUPPER Ozempic 2 mg/dose (8 mg/3 mL) pen injector SQ azithromycin [Zithromax Z-Holland] 250 mg tablet See Rx Instructions PO .COMPLEX Qty: 6 0RF Rx Instructions: For 250 mg dose pack: take 500 mg today (day 1), then 250 mg for 4 days (days 2-5) PO fluticasone propionate 50 mcg/actuation spray,suspension 1 spray intranasal DAILY Qty: 16 0RF Rx Instructions: administer into each nostril guaifenesin 1,200 mg tablet extended release 12hr 1,200 mg PO BID Qty: 20 0RF metformin 1,000 mg tablet 1,000 mg PO BIDWMEAL lisinopril-hydrochlorothiazide 20-12.5 mg tablet 1 tab PO DAILY Patient Comments: TAKE 1 TABLET BY MOUTH DAILY glipizide 10 mg tablet extended release 24hr 10 mg PO DAILY Patient Comments: TAKE 1 TABLET BY MOUTH DAILY meloxicam 15 mg tablet 15 mg PO DAILY Patient Comments: TAKE 1 TABLET BY MOUTH DAILY tamsulosin 0.4 mg capsule 0.4 mg PO DAILY Patient Comments: TAKE 1 CAPSULE BY MOUTH DAILY amlodipine 10 mg tablet 10 mg PO DAILY Patient Comments: TAKE 1 TABLET BY MOUTH DAILY omeprazole 20 mg capsule,delayed release(DR/EC) 20 mg PO DAILY Patient Comments: TAKE 1 CAPSULE BY MOUTH DAILY aspirin 81 mg Tablet 81 mg PO DAILY Referrals Follow up/Referrals: Dejon Lund MD [Primary Care Provider, Medical] - See instructions Activity Restrictions/Add. Instructions Additional Instructions/Restrictions: Follow-up with Dr. Lund to discuss further options for better glucose control. Continue taking your insulin as prescribed. If you develop any new or worsening symptoms, or if you become concerned for your health for any reason, return to the emergency department for evaluation. Clinical Impressions Clinical Impression: Hyperglycemia, Dizziness Print Language Print Language: Luxembourgish Discharge ED Provider: Ganga Leos Adult [facility] General Chief complaint: Dizziness Stated complaint: Diaabetic sugar 408,dizzy Time Seen by Provider: 01/13/25 18:35 Mode of Arrival: Ambulatory Source of Information: Patient Description of Symptoms (Recalled from ER Triage Doc. by RN): PT REPORTS ELEVATED GLUCOSE 408, STATES HE FELT DIZZY THIS AM WHEN HE LOOKS DOWN. REPORTS GLUCOSE HAS BEEN VERY UNCONTROLLED WITH CHANGES IN INSULIN History of Present Illness HPI narrative: Apolinar Nesbitt is a 54y male with a history of insulin-dependent diabetes on 80 mg of Humalog in the morning and 40 mg of Humalog at night as well as metformin who presents to the emergency department for complaints of high glucose readings and dizziness. Patient states that his glucose has not been well-controlled recently and he had his Humalog increased. He states that his glucose tends to run in the 200s, however this evening, his glucose was 408. He also reports some dizziness but denies any chest pain, shortness of breath, abdominal pain, nausea, vomiting or diarrhea. Related Data Home Medications ?Medication ?Instructions ?Recorded ?Confirmed metformin 1,000 mg tablet 1,000 mg PO BIDWMEAL Diabete s 09/08/22 01/05/25 amlodipine 10 mg tablet 10 mg PO DAILY High Blood Pr essure 03/19/23 01/05/25 aspirin 81 mg tablet 81 mg PO DAILY heart health 03/19/23 01/05/25 glipizide 10 mg tablet, extended 10 mg PO DAILY Diabet es 03/19/23 01/05/25 release 24 hr lisinopril 20 1 tab PO DAILY High Blood Pr essure 03/19/23 01/05/25 mg-hydrochlorothiazide 12.5 mg tablet meloxicam 15 mg tablet 15 mg PO DAILY Pain 03/19/23 01/05/25 omeprazole 20 mg capsule,delayed 20 mg PO DAILY Acid R eflux 03/19/23 01/05/25 release tamsulosin 0.4 mg capsule 0.4 mg PO DAILY Prostate 05/0101/05/25 insulin NPH-regular 70-30 U-100 SQ 01/05/25 01/05/25 insulin 100 unit/mL subcutaneous pen (Humulin 70/30 U-100 Glenda) semaglutide 2 mg/dose (8 mg/3 mL) mg SQ 01/05/2501/05 subcutaneous pen injector (Ozempic) simvastatin 80 mg tablet mg PO 01/05/25 01/05/25 Previous Rx's ?Medication ?Instructions ?Recorded azithromycin 250 mg tablet See Rx Instructions PO .COM PLEX #6 01/05/25 (Zithromax Z-Holland) tabs fluticasone propionate 50 1 spray intranasal DAILY #16 grams 01/05/25 mcg/actuation nasal spray,suspension guaifenesin 1,200 mg tablet, 1,200 mg PO BID #20 tabs 01/05/25 extended release 12 hr Allergies Allergy/AdvReac Type Severity Reaction Status Date / Time doxycycline (DOXYCYCLINE) Allergy Mild Hives Verified 01/05/25 12:49 Penicillins (PENICILLINS) Allergy Unknown Hives Ver[facility]05[facility]25 12[facility] Disclaimer: The information contained in this section may have been updated after the patient was seen, as this information can be updated by other users. Medical History Self-catheterizes urinary bladder Hypertension Diabetes Surgical History History of dilation of urethra Family History Other Family history of hyperlipidemia Family history of hypertension Social History Smoking Status: Never smoker alcohol intake: never substance use type: denies use current occupational status: employed Travel in the last 8 weeks?: None Have you lived/traveled outside US in past 30 days?: No Contact w/someone who lives/traveled outside US past 30 days?: No Exposure to someone with infectious disease in past 14 days?: No Do you have a fever (greater than 100.4 F or 38 C)?: No Have you tested positive for COVID-19?: No Exposed to someone with COVID-19 in past 14 days?: No Do you have a sore throat?: No Do you have a cough?: No Do you have any weakness?: No Do you have any diarrhea?: No Are you experiencing any unusual bleeding?: No Do you have any muscle aches/pain?: No Do you have any abdominal pain?: No Are you experiencing loss of taste or smell?: No ROS Obtained: Yes Systems reviewed as appropriate & no additional complaints except as documented Physical Exam General General appearance: alert, in no apparent distress and obese Head Head exam: atraumatic Eye Eye exam: Present normal appearance ENT ENT exam: Present normal external ear exam Neck Neck exam: Present full ROM Chest Chest inspection: Present symmetric chest wall rise Respiratory Respiratory exam: Present normal lung sounds bilaterally; Absent respiratory distress, wheezes or stridor Cardiovascular Cardiovascular exam: Present regular rate and normal rhythm Abdominal Exam Abdominal exam: Present soft; Absent tenderness or guarding exam: Present deferred Extremities Exam Extremities exam: Present normal inspection Back Exam Back exam: Present normal inspection Neurological Exam Neurological exam: Present alert and oriented X3 Psychiatric Psychiatric exam: Present normal affect Skin Skin exam: Present warm and dry Medical Decision Making Medical Records Screening: Per USPSTF and CDC recommendations, given the prevalence of disease in our region, it is our hospital?s policy to screen for HIV and viral Hepatitis for all patients aged 18 and over and those with ongoing risk factors. Sree Inquiry Pt receiving controlled substance: No Vital Signs: 01/13/25 18:46 Temperature 98.2 F Temperature Source Oral Pulse Rate [Radial] 88 Respiratory Rate 18 Blood Pressure [Left Arm] 144/81 H Blood Pressure Mean [Left Arm] 102 Blood Pressure Source [Left Arm] Automatic Cuff Blood Pressure Position [Left Arm] Sitting 02 Sat by Pulse Oximetry 98 Oxygen Delivery Method Room Air Lab Data Lab Results 01/13/25 19:08: WBC 8.0, RBC 5.15, Hgb 14.1, Hct 43.5, MCV 84.5, MCH 27.4, MCHC 32.4, RDW 14.8, Plt Count 212, MPV 11.1 H, Neut % (Auto) 57.3, Lymph % (Auto) 25.6, [place] % (Auto) 8.4, Eos % (Auto) 6.0, Baso % (Auto) 1.1, Neut # (Auto) 4.6, Lymph # (Auto) 2.1, [place] # (Auto) 0.7, Eos # (Auto) 0.5 H, Baso # (Auto) 0.1, VBG pH 7.38, VBG pCO2 34.7 L, VBG pO2 84.3 H, VBG HCO3 20.1 L, VBG Total CO2 21.2 L, VBG O2 Saturation 97.0 H, VBG Base Excess -5.0 L, VBG Lactic Acid 1.5, S odium 135 L, Potassium 4.6, Chloride 99, Carbon Dioxide 24, Anion Gap 16.6 H, BUN 18, Creatinine 0.90, Estimated Creat Clear 109, Estimated GFR 89, Est GFR ( Amer) 107, Glucose 209 H, Calcium 8.3 L, Magnesium 1.7, Total Bilirubin 0.5, AST 41, ALT 49, Alkaline Phosphatase 81, Total Protein 7.3, Albumin 4.4, Globulin 2.9, Albumin/Globulin Ratio 1.5 01/13/25 19:08 01/13/25 19:08 Orders (Tests/Meds): ORDERS Category Date Time Status B-Hydroxybutyrate Stat Lab 01/13/25 19:08 Received CBC w/Auto Diff [Complete Blood Count Auto Diff] Stat Lab 01/13/25 19:08 Completed CMP [Comprehensive Metabolic Panel] Stat Lab 01/13/25 19:08 Completed HIV Combo Stat Lab 01/13/25 19:08 Received Hepatitis C Ab Qual. W/ RFX Stat Lab 01/13/25 19:08 Received Magnesium Stat Lab 01/13/25 19:08 Completed VBG [Venous Blood Gas] Stat RT 01/13/25 19:08 Completed ECG Data Tracing #1: I reviewed this ECG and interpreted as documented below: Normal sinus rhythm. Ventricular rate of [address] elevation or depression. No T wave inversions. QTc normal at 369. Medical Decision Narrative: Apolinar Nesbitt is a 54y male with a history of insulin-dependent diabetes on 80 mg of Humalog in the morning and 40 mg of Humalog at night as well as metformin who presents to the emergency department for complaints of high glucose readings and dizziness. Patient states that his glucose has not been well-controlled recently and he had his Humalog increased. He states that his glucose tends to run in the 200s, however this evening, his glucose was 408. He also reports some dizziness but denies any chest pain, shortness of breath, abdominal pain, nausea, vomiting or diarrhea. He does report increased thirst. On arrival, patient is mildly hypertensive with a blood pressure 144/81, heart rate within normal limits, breathing company on room air with oxygen saturation 98% SpO2. Afebrile. Physical exam, stated above, revealed an overall well-appearing male in no distress. Abdomen is soft, nontender nondistended. Cardiopulmonary exam is unremarkable. He is GCS 15, following commands and answering questions appropriately. The remainder of his physical exam is grossly unremarkable. Deferral diagnosis includes, but is not limited to: Hyperglycemia, DKA, HHS, cardiac arrhythmia, electrolyte derangement, dehydration, among others. The most morbid conditions were considered and workup was based on these. Workup in the emergency department included: VBG, CBC, CMP, beta hydroxybutyric acid, EKG. Low concern for ACS or pulmonary embolism given patient has no chest pain or shortness of breath. Laboratory studies interpreted by me personally and demonstrated No leukocytosis, no anemia. No acidosis on VBG. Lactic acid normal at 1.5. Mildly low sodium of 135 but otherwise unremarkable. Anion gap of 16.6. Glucose improved to 209. Magnesium normal at 1.7. Otherwise unremarkable workup. No evidence of DKA/HHS. EKG unremarkable as stated above. Given patient's unremarkable workup, is felt that he is appropriate for discharge at this time with plan to follow-up with Dr. Lund to discuss further glucose control/current insulin regimen. Return precautions were given. All questions were answered. He demonstrated understanding and was in agreement this plan. He was then discharged from the emergency department in stable condition. Critical Care Critical Care Time Critical Care Time: No
--- NOTE | 2025-01-13 18:59 | ECG_ITS ---
APPROVED REPORT Exam: Resting ECG HR:88 bpm ECG Measurements Heart Rate 88 AXES HI 162 P 9 QRSd 97 QRS 26 QT 324 T 54 QTc 369 Conclusion SINUS RHYTHM NORMAL ECG Electronically signed by : NICK DANIEL, 01/14/2025 08:12:44
--- NOTE | 2025-01-13 19:02 | PC.NURSE ---
Patients FSBS is 230
[2025-01-13 19:18] LABS: Lactate Venous 1.5 mmol/L (0.4-2.0); VBG HCO3 20.1 mmol/L (23-30); VBG PCO2 34.7 mmol/L (35-51); VBG PH 7.38 mmol/L (7.31-7.41); VBG PO2 84.3 mmol/L (28-40)
[2025-01-13 19:20] LABS: Hematocrit 43.5 % (42.0-52.0); Hemoglobin 14.1 g/dL (14.1-18.0); Immature Granulocytes % 1.6 %; Mean Corpuscular HGB Conc 32.4 g/dL (31.8-35.4); Mean Corpuscular Hemoglobin 27.4 pg (27.0-31.2); Mean Corpuscular Volume 84.5 fl (80-94); Nucleated Red Blood Cells % 0 %; Platelet Count 212 K/mm3 (142-424); Red Blood Count 5.15 M/mm3 (4.60-6.20); Red Cell Distribution Width-SD 45.0 fL; White Blood Count 8.0 K/mm3 (4.8-10.8)
[2025-01-13 19:32] LABS: Alanine Aminotransferase 49 U/L (12-78); Albumin Level 4.4 g/dl (3.5-5.0); Albumin/Globulin Ratio 1.5 (1.1-1.8); Alkaline Phosphatase 81 U/L (38-126); Anion Gap 16.6 mEq/L (5-15); Aspartate Amino Transferase 41 U/L (17-59); Bilirubin,Total 0.5 mg/dl (0.2-1.3); Blood Urea Nitrogen 18 mg/dl (9-20); Calcium 8.3 mg/dl (8.4-10.2); Carbon Dioxide 24 mmol/L (22.0-30.0); Chloride 99 mmol/L (98-107); Creatinine Clearance Estimated 109 mL/min (50-200); Creatinine,Serum 0.90 mg/dl (0.66-1.25); Estimated Glomerular Filt Rate 89 ml/min (>60); GFR (African American) 107 ML/MIN (>60); Globulin 2.9 g/dL (1.3-3.2); Glucose 209 mg/dl (74-100); Magnesium 1.7 mg/dl (1.6-2.3); Potassium 4.6 mmoL/L (3.5-5.1); Sodium 135 mmol/L (136-145); Total Protein,Serum 7.3 g/dl (6.3-8.2)
[2025-01-13 20:24] VITALS: BP 114/75; PULSE 83; RESP 18; TEMP 36.9
[2025-01-13 20:45] LABS: Hepatitis C Ab Qual. W/ RFX NEGATIVE (Negative)
== END 2025-01-13 20:26 | disposition home or self-care (01) ==
PROVIDERS: Emergency Provider Student in an Organized Health Care Education/Training Program; PCP Family Medicine
DX: R42 Dizziness and giddiness (principal); E11.65 Type 2 diabetes mellitus with hyperglycemia
CPT/HCPCS: 80053; 82010; 82803; 83735; 85025; 86803; 87389; 93005; 99283

== ENCOUNTER 2025-01-31 12:23 | Outpatient (CLI) | payer BC, SELFPAY ==
--- OUTSIDE RECORDS SUMMARY | 2025-01-16 12:15 | XMS_ITS | Encounter Summary ---
[facility] Address [address] [place] [id number] Care Team Providers Care Head Banquet Waiter/Waitress Name Role Phone Dejon Lund MD Primary Care Provider + Reason for Referral * Consultation (Routine) - Authorized Specialty Diagnoses / Procedures Referred By Contac t Referred To Contact Endocrinology Diagnoses Type 2 diabetes mellitus with hyperglycemia, with long-term current use of insulin Procedures SC OFFICE/OUTPATIENT NEW MODERATE MDM 45 MINUTES Dejon Lund MD [address] [place] [address] Phone: tel: fax: [facility] END[facility] [address] [place] [phone] Phone: tel: fax: Referral ID Status Reason Start Date Expiration Date Visits Requested Visits Authorized [id number] Authorized Specialty Services Required 01/16/2025 04/17/2026 1 1 Reason for Visit * Reason Comments [facility] ER / hyperglycemia Encounter Details Date Type Department Care Team (Late st Contact Info) Description 01/16/2025 12:15 PM EDT Office Visit [facility] [address] [place] [phone] Dejon Lund MD [address] [place] [address] Type 2 diabetes mellitus with hyperglycemia, with long-term current use of insulin (Primary Dx); Type 2 diabetes mellitus with hyperglycemia, with long-term current use of insulin Social History Tobacco Use Types Packs/Day Years Used Date Smoking Tobacco: Never Smokeless Tobacco: Never Alcohol Use Standard Drinks/Week Comments Never 0 (1 standard drink = 0.6 oz pur e alcohol) PHQ-2 Answer Date Recorded Retired PHQ-9: Brief Depression Severity Measure Score 0 09/12/2022 PHQ-2 Answer Date Recorded Patient Health Questionnaire-2 Score 0 08/13/2024 Sex and Gender Information Value Date Recorded Sex Assigned at Not on file Legal Sex Male 4:08 PM EDT Gender Identity Not on file Sexual Orientation Not on file documented as of this encounter Last Filed Vital Signs Vital Sign Reading Time Taken Comments Blood Pressure 150/80 01/16/2025 12:32 PM EDT Pulse 95 01/16/2025 12:32 PM EDT Temperature 36.3 C (97.3 F) 01/16/2025 12:32 PM EDT Respiratory Rate 20 01/16/2025 12:32 PM EDT Oxygen Saturation 96% 01/16/2025 12:32 PM EDT Inhaled Oxygen Concentration - - Weight 159 kg (351 lb) 01/16/2025 12:32 PM EDT Height 179.1 cm (5' 10.51 ) 01/16/2025 12:32 PM EDT Body Mass Index 49.63 01/16/2025 12:32 PM EDT documented in this encounter Progress Notes * Dejon Lund MD - 01/16/2025 1:06 PM EDTAssociated Problem(s): Type 2 diabetes mellitus with hyperglycemia, with long-term current use of insulin Control is worsening Restart Jardiance and monitor closely for UTI recurrence Increase Novolin 70/30 to 80 units in a.m. and 60 units in evening Cont. Ozempic and metformin Swelling occurred with pioglitazone Will DC glipizide at f/u [employer] [place] 3 plus in office Refer to Endocrinology * Dejon Lund MD - 01/16/2025 12:15 PM EDT Chief Complaint Patient presents with [facility] ER / hyperglycemia Subjective Apolinar Nesbitt is a 54 y.o. who presents for ER f/u for dizziness and hyperglycemia. Glucose rising over the last month fasting glucose in mid to high 200's. Evenings are close to 400. The following portions of the patient's history were reviewed and updated as appropriate: allergies, current medications, past family history, past medical history, past social history, past surgicalhistory, and problem list. Review of Systems Objective Vital Signs: BP 150/80 Pulse 95 Temp 97.3 ??F (36.3 ??C) Resp 20 Ht 179.1 cm (70.51 ) Wt (!) 159 kg (351 lb) SpO2 96% BMI 49.63 kg/m?? Physical Exam Vitals reviewed. Constitutional: Appearance: Normal appearance. Neurological: Mental Status: He is alert. Result Review Assessment and Plan Diagnoses and all orders for this visit: 1. Type 2 diabetes mellitus with hyperglycemia, with long-term current use of insulin (Primary) Assessment & Plan: Control is worsening Restart Jardiance and monitor closely for UTI recurrence Increase Novolin 70/30 to 80 units in a.m. and 60 units in evening Cont. Ozempic and metformin Swelling occurred with pioglitazone Will DC glipizide at f/u [employer] [place] 3 plus in office Refer to Endocrinology Orders: - POC Albumin/Creatinine Ratio Urine - Ambulatory Referral to Endocrinology - empagliflozin (Jardiance) 10 MG tablet tablet; Take 1 tablet by mouth Daily. - Insulin NPH Isophane & Regular (70-30) 100 UNIT/ML suspension pen-injector; 80 units sc with breakfast and 60 units sc with dinner Dispense: 15 mL; Refill: 3 2. Type 2 diabetes mellitus with hyperglycemia, with long-term current use of insulin Comments: Control has improved but A1c not at goal. Change glargine to 70/30 60 units in the morning and 30 units with dinner. Glucose log in 2 weeks Assessment & Plan: Control is worsening Restart Jardiance and monitor closely for UTI recurrence Increase Novolin 70/30 to 80 units in a.m. and 60 units in evening Cont. Ozempic and metformin Swelling occurred with pioglitazone Will DC glipizide at f/u [employer] [place] 3 plus in office Refer to Endocrinology Orders: - POC Albumin/Creatinine Ratio Urine - Ambulatory Referral to Endocrinology - empagliflozin (Jardiance) 10 MG tablet tablet; Take 1 tablet by mouth Daily. - Insulin NPH Isophane & Regular (70-30) 100 UNIT/ML suspension pen-injector; 80 units sc with breakfast and 60 units sc with dinner Dispense: 15 mL; Refill: 3 Follow Up No follow-ups on file. Patient was given instructions and counseling regarding his condition or for health maintenance advice. Please see specific information pulled into the AVS if appropriate. documented in this encounter Plan of Treatment Upcoming Encounters Date Type Department Care Team (Late st Contact Info) Description 02/11/2025 8:00 AM EDT Office Visit [facility] END[facility] [address] [place] [phone] Мария Masters PA-C [address] [place] [phone] 02/13/2025 9:15 AM EDT Office Visit [facility] [address] [place] [address] Dejon Lund MD [address] [place] [address] 05/19/2025 9:00 AM EST Office Visit [facility] [address] [facility] [address] [place] [address] Rocco Bashir MD [address] [facility] [address] [place] [address] Scheduled Referrals Name Type Priority Associated Diagnoses Order Schedule Ambulatory Referral to Endocrinology Outpatient Referral Routine Type 2 diabetes mellitus with hyperglycemia, with long-term current use of insulin Ordered: 01/16/2025 documented as of this encounter Procedures Procedure Name Priority Date/Time Associated Diagnosis Comments POC ALBUMIN/CREATININE RATIO Routine 01/16/2025 1:05 PM EDT Type 2 diabetes mellitus with hyperglycemia, with long-term current use of insulin documented in this encounter Results * (ABNORMAL) POC Albumin/Creatinine Ratio Urine (01/16/2025 1:05 PM EDT) POC ALBUMIN, URINE 30 mg/L POC CREATININE, URINE 10 mg/dL POC Urine Albumin Creatinine Ratio 30-300 mg/g <30 Comment:abnormal Lot Number [id number] Expiration Date 11/06/2025 Urine 01/16/2025 1:05 PM EDT Dejon Lund MD POINT OF CARE TEST ORDER EZ Final Result documented in this encounter Visit Diagnoses Diagnosis Type 2 diabetes mellitus with hyperglycemia, with long-term current use of insulin- Primary documented in this encounter Care Teams Head Banquet Waiter/Waitress Relationship Specialty Start Date End Date Dejon Lund MD [address] [place] [address] [place] [address] PCP - General Family Medicine 12/30/21 documented as of this encounter
--- OUTSIDE RECORDS SUMMARY | 2025-02-03 12:26 | XMS_ITS | Encounter Summary ---
[facility] [address] [place] [phone] Care Team Providers Care Epitaxial Reactor Operator Name Role Phone Dejon Lund MD Primary Care Provider + Encounter Details Date Type Department Care Team (Late st Contact Info) Description 11/14/2024 Results Follow-Up [facility] [address] [place] [address] Dejon Lund MD [address] [place] [address] Social History Tobacco Use Types Packs/Day Years [...] as of this encounter Plan of Treatment Upcoming Encounters Date Type Department Care Team (Late st Contact Info) Description 02/11/2025 8:00 AM EDT Office Visit [facility] ENDOCRINOLOGY [address] [phone] Мария Masters PA-C [address] [place] [address] 02/13/2025 9:15 AM EDT Office Visit [facility] [address] [place] [phone] Dejon Lund MD [address] [place], [place] [phone] 05/19/2025 9:00 AM EST Office Visit [facility] UROLOGY [address] [facility] [address] [place] [address] Rocco Bashir MD [address] [facility] [address] [place] [address] documented as of this encounter Visit Diagnoses Not on filedocumented in this encounter Care Teams Epitaxial Reactor Operator Relationship Specialty Start Date End Date Dejon Lund MD [address] [place] [address] PCP - General Family Medicine 12/30/21 documented as of this encounter
--- OUTSIDE RECORDS SUMMARY | 2025-02-03 12:26 | XMS_ITS | Encounter Summary ---
[facility] Address [address] [place] [address] Care Team Providers Care Press Operator Carbon Blocks Name Role Phone Dejon Lund MD Primary Care Provider + Reason for Visit * Reason Comments Med Refill Encounter Details Date Type Department Care Team (Late Contact Info) Description 01/18/2025 Refill [facility] [address] [place] [address] Dejon Lund MD [address] [place] [address] Social History Tobacco Use Types [...] Encounters Date Type Department Care Team (Late Contact Info) Description 02/11/2025 8:00 AM EDT Office Visit [facility] ENDOCRINOLOGY [address] [address] Мария Masters PA-C [address] [place] [address] 02/13/2025 9:15 AM EDT Office Visit [facility] [address] [place] [address] Dejon Lund MD [address] [place] [address] 05/19/2025 9:00 AM EST Office Visit [facility] UR[facility] [address] [facility] [address] [place] [address] Rocco Bashir MD [address] [facility] [address] [place] [address] documented as of this encounter Visit Diagnoses Not on filedocumented in this encounter Care Teams Press Operator Carbon Blocks Relationship Specialty Start Date End Date Dejon Lund MD [address] [place] [address] PCP - General Family Medicine 12/30/21 documented as of this encounter
--- OUTSIDE RECORDS SUMMARY | 2025-02-03 12:26 | XMS_ITS | Clinical Summary ---
Author Organization [facility] Address [address] [place] [address] Care Team Providers Care Beef Cattle Farmer Name Role Phone Pascual Mckeon MD Primary Care Provider [phone] Allergies Active Allergy Reactions Criticality Noted Date [...] time each day. 3 Active HYDROcodone-evette taminophen ([place]) 5-325 MG tablet TAKE 1 TABLET BY [...] 2022 UKY-Zoster Vaccines (1 of 2) 2022 [id number] Vaccine (1 - 20 24-25 season) 2024 [...] patient's age to complete this topic Insurance [facility] [place] [id number] [address] [place] [id number] MOE Care Teams Beef Cattle Farmer Relationship Specialty Start Date End Date Pascual Mckeon MD [address] [place] [address] #1 #1 [place] [id number] PCP - General 11/20/20
--- OUTSIDE RECORDS SUMMARY | 2025-02-03 12:26 | XMS_ITS | Encounter Summary ---
[facility] Address [address] [place] [id number] Care Team Providers Care Lead Consultant Name Role Phone Dejon Lund MD Primary Care Provider + Encounter Details Date Type Department Care Team (Late st Contact Info) Description 11/13/2024 Results Follow-Up [facility] UROLOGY 3000 [facility] [address] [place] [address] Rocco Bashir MD 1760 [facility] 502 [place] [address] Social History Tobacco Use Types Packs/Day Years [...] on file documented as of this encounter Progress Notes * Rocco Bashir MD - 11/13/2024 12:52 PM EDT Please let patient know urine culture is growing multiple bacteria, mixed kaylyn possibly contaminated however given his risk of recurrent UTI will recommend clearing this with a 5-day course of Bactrim which I will send to his pharmacy. While he is taking the Bactrim he should hold his nightly Macrobid. Rocco Bashir MD documented in this encounter Plan of Treatment Upcoming Encounters Date Type Department Care Team (Late st Contact Info) Description 02/11/2025 8:00 AM EDT Office Visit [facility]CRINOLOGY [address] [facility] [address] [place] [address] Мария Masters PA-C [facility] [facility] [address] [place] [address] 02/13/2025 9:15 AM EDT Office Visit [facility] FAMILY MEDICINE [address] [place] [address] Dejon Lund MD [address] [place] [address] 05/19/2025 9:00 AM EST Office Visit [facility] UROLOGY [address] [facility] [address] [place] [address] Rocco Bashir MD 1760 [facility] [address] [place] [address] documented as of this encounter Visit Diagnoses Not on filedocumented in this encounter Care Teams Lead Consultant Relationship Specialty Start Date End Date Dejon Lund MD [address] [place] [address] PCP - General Family Medicine 12/30/21 documented as of this encounter
--- OUTSIDE RECORDS SUMMARY | 2025-02-03 12:26 | XMS_ITS | Encounter Summary ---
[facility] Address [address] [place] [address] Care Team Providers Care Topographical Engineer Name Role Phone Dejon Lund MD Primary Care Provider + Reason for Visit * Reason Comments Med Refill Encounter Details Date Type Department Care Team (Late st Contact Info) Description 12/27/2024 Refill [facility] FAMILY MEDICINE 210 [place] [address] Dejon Lund MD 210 [place] [address] Hypercholesterolemia Social History Tobacco Use Types Packs/Day Years [...] 02/11/2025 8:00 AM EDT Office Visit [facility] ENDOCRINOLOGY [address] [address] Мария Masters PA-C [address] [facility] [address] [place] [address] 02/13/2025 9:15 AM EDT Office Visit [facility] FAMILY MEDICINE [address] [place] [address] Dejon Lund MD [address] [place], [place] [address] 05/19/2025 9:00 AM EST Office Visit [facility] UROLOGY 3000 [facility] 340 [place] [address] Rocco Bashir MD 30[address] [facility] 502 [place] [address] documented as of this encounter Visit Diagnoses Diagnosis Hypercholesterolemia Pure hypercholesterolemia documented in this encounter Care Teams Topographical Engineer Relationship Specialty Start Date End Date Dejon Lund MD [address] [place] [address] PCP - General Family Medicine 12/30/21 documented as of this encounter
--- OUTSIDE RECORDS SUMMARY | 2025-02-03 12:26 | XMS_ITS | Encounter Summary ---
[facility] Address [address] [place] [id number] Care Team Providers Care Supervising Librarian Name Role Phone Dejon Lund MD Primary Care Provider + Reason for Visit * Reason Onset Date Comments Prior Authorization 01/28/2025 Humulin 70/3 0 Encounter Details Date Type Department Care Team (Late st Contact Info) Description 01/28/2025 Telephone [facility] FAMILY MEDICINE 210 [place] [address] Dejon Lund MD 210 [place] [address] Prior Authorization (Humulin 70/30 ) Social History Tobacco Use Types Packs/Day Years [...] on file documented as of this encounter Miscellaneous Notes * Telephone Encounter - Lanie Rollins MA - 01/29/2025 10:21 AM EDT Submitted PA via Cover My Meds for Humulin 70/30 ([place]: [id number]) [place] Case: [id number], Status: Approved, Coverage Starts on: 01/29/2025 12:00:00 AM, Coverage Ends on: 01/29/2026 12:00:00 AM. Informed pt this is going through now for a $30 copay. * Telephone Encounter - Adrian Lorenzo RegSched Rep - 01/29/2025 8:47 AM EDT PATIENT CALLED TO CHECK ON THE STATUS OF THIS REQUEST. HE'S COMPLETELY OUT OF INSULIN. * Telephone Encounter - Susy Russell RegSched Rep - 01/28/2025 8:27 AM EDT Caller: Apolinar Nesbitt Relationship: Self Best call back number: [phone] Who are you requesting to speak with (clinical staff, provider, specific staff member): CLINICAL Do you know the name of the person who called: What was the call regarding: RUNNING OUT OF INSULIN, INSURANCE WILL NO LONGER COVER THE Insulin NPHIsophane & Regular (70-30) 100 UNIT/ML suspension pen- injector AT CURRENT DOSAGE, PLEASE ADVISEOR CHANGE INSULIN Is it okay if the provider responds through MyChart: documented in this encounter Plan of Treatment Upcoming Encounters Date Type Department Care Team (Late st Contact Info) Description 02/11/2025 8:00 AM EDT Office Visit [facility] ENDOCRINOLOGY [address] [phone] Мария Masters PA-C [address] [address] 02/13/2025 9:15 AM EDT Office Visit [facility] FAMILY MEDICINE [address] [place] [address] Dejon Lund MD [address] [place] [address] 05/19/2025 9:00 AM EST Office Visit [facility] UROLOGY 3000 [facility] [address] [place] [address] Rocco Bashir MD 1760 [facility] [address] [place] [address] documented as of this encounter Visit Diagnoses Not on filedocumented in this encounter Care Teams Supervising Librarian Relationship Specialty Start Date End Date Dejon Lund MD [address] [place] [address] PCP - General Family Medicine 12/30/21 documented as of this encounter
--- OUTSIDE RECORDS SUMMARY | 2025-02-03 12:26 | XMS_ITS | Data Portability ---
Author Organization [facility] Address [address] [facility] [address] [place] [address] Care Team Providers Care Clear Coat Sprayer Name Role Phone LUCINDA DAVEY Referring Provider Assessment No assessment recorded. Plan [...] By Organization Details Last Modified Time 11/29/2017 [id number] Lumbar MRI w/o from 11/14/17 reviewed showing diffuse degenerative disc disease with mild central canal stenosis at L5-S1 and moderate central canal stenosis at L4-L5. Moderate foraminal stenosis at L4-L5. Spent 20 total minutes with the patient today in counseling regarding information documented in my assessment and plan above. The time represents more than 50% of the encounter. [email or web address] Not available 12/04/2017 10:21:33 Reason for Referral None Reported. Medical Equipment None Reported. Allergies Allergen ID Allergen Name Allergen Category Reaction Reaction Severity Criticality Documentation Date Start Date Code Code System Note Provider Name and Address Organization Details Recorded Time 632413 Product containin g penicilli n (product) medicatio n Not available Not available Not available 11/29/2017 65976 8001 SNOMED Lizzy chávez [facility] 8 10:57:07 Medications Name Sig Start [...] Updated DateTime 11/29/2017 185.42 cm 42.4 kg/m2 085115.15 g 140/90 mm[Hg] Lizzy Singh [facility] 11/29/2017 10:56:54 Social History Question Answer Notes LastModified by Organizat ion Details LastModified Time Tobacco Smoking Status Never Smoker Lizzy Singh [facility] 11/29/2017 10:57:15 What Was The Date Of Your Most Recent Tobacco Screening? 11/29/2017 Information n ot available 08/27/2019 Sex: Unknown Functional Status None recorded. Mental Status None recorded. Family History Nothing Reported. Medical History Condition Response Diabetes Y Arthritis Y Hypertension Y High Cholesterol Y Past Encounters Encounter ID Performer Location Encounter Start Date Encounter Closed Date Diagnosis/Indication Diagnosis SNOMED-CT Code Diagnosis ICD10 Code Diagnosis Note [id number] PARMINDER CRAWFORD PA-C [facility] [address] [place] [address] 11/29/2017 09:56:48 12/05/2017 11:36:34 Pain of right hip joint 2527305603 03190 M25.551 Mr. Nesbitt does have a prominent disc bulge at L4-5 with moderate central canal stenosis at and moderate foraminal stenosis, but this is unlikely to be causing his right hip pain or right ankle pain. We will order right hip xrays. We will refer him to an orthopedic doctor for evaluation and treatment. Pain of cl int of ankle and/or foot [id number] M25.571 We will order right ankle xrays. [...] ID Guarantor Name 12/19/2017 1 [employer] [id number] Carisa Nesbitt [id number] 39 Apolinar Nesbitt
--- OUTSIDE RECORDS SUMMARY | 2025-02-03 12:26 | XMS_ITS | Encounter Summary ---
[facility] Address [address] [place] [id number] Care Team Providers Care Client Associate Name Role Phone Dejon Lund MD Primary Care Provider + Reason for Visit * Reason Onset Date Comments MEDICATION QUESTIONS 01/21/2025 Encounter Details Date Type Department Care Team (Late st Contact Info) Description 01/21/[address] [facility] FAMILY MEDICINE [address] [place] [address] Dejon Lund MD 210 [place] [address] MEDICATION QUESTIONS Social History Tobacco Use Types Packs/Day Years [...] encounter Miscellaneous Notes * Telephone Encounter - Inessa Mederos MA - 01/22/2025 2:37 PM EDT Pt aware and understood. * Telephone Encounter - Dejon Lund MD - 01/22/2025 2:15 PM EDT I do not have good success with those types of injections. I don't really know if a letter will help. The shot of steroid could raise his blood sugar for 3 days to up to 3 weeks. I think he is going to have to wear the boot. * Telephone Encounter - Lanie Rollins MA - 01/22/2025 12:12 PM EDT Per , pt was seen by podiatry yesterday. They gave him a walking boot and an oral med. Pt is constantly up on his feet and was hoping he could get a steroid inj in his foot like he had gotten several years ago. However, she would not do it because he was a diabetic. They are wondering is there anything you could do about this? Would you be willing to give him one or write something stating that you would agree that it would be acceptable for him to have one? * Telephone Encounter - Serafin Plummer RegSched Rep - 01/21/2025 4:41 PM EDT Caller: BELINDA BARROSO Relationship: Emergency Contact Best call back number: [phone] What is the best time to reach you: ANYTIME Who are you requesting to speak with (clinical staff, provider, specific staff member): CLINICAL STAFF PATIENT IS NEEDING TO SPEAK WITH STAFF ABOUT GETTING APPROVAL FOR STEROID SHOTS EVEN THOUGH BLOOD SUGARS ARE ELEVATED. PLEASE CALL TO DISCUSS. documented in this encounter Plan of Treatment Upcoming Encounters Date Type Department Care Team (Late st Contact Info) Description 02/11/2025 8:00 AM EDT Office Visit [facility] ENDOCRINOLOGY [address] [phone] Мария Masters PA-C [facility] [facility] [address] [place] [id number] 02/13/2025 9:15 AM EDT Office Visit [facility] FAMILY MEDICINE [address] [place] [address] Dejon Lund MD [address] [place] [address] 05/19/2025 9:00 AM EST Office Visit [facility] UROLOGY 3000 [facility] 340 [place] [address] Rocco Bashir MD 1760 [facility] [address] [place] [address] documented as of this encounter Visit Diagnoses Not on filedocumented in this encounter Care Teams Client Associate Relationship Specialty Start Date End Date Dejon Lund MD [address] [place] [address] PCP - General Family Medicine 12/30/21 documented as of this encounter
--- OUTSIDE RECORDS SUMMARY | 2025-02-03 12:26 | XMS_ITS | Encounter Summary ---
[facility] Address [address] [place] [phone] Care Team Providers Care [place] Actor Name Role Phone Dejon Lund MD Primary Care Provider + Encounter Details Date Type Department Care Team (Latest Contact Info) Description 01/16/2025 Travel Social History Tobacco Use Types Packs/Day Years [...] Description 02/11/2025 8:00 AM EDT Office Visit [facility] ENDOCRINOLOGY [address] [phone] Мария Masters PA-C [address] [address] 02/13/2025 9:15 AM EDT Office Visit [facility] FAMILY MEDICINE 210 [place] [address] Dejon Lund MD 210 [place] [address] 05/19/2025 9:00 AM EST Office Visit [facility] UROLOGY 3000 [facility] 340 [place] [address] Rocco Bashir MD 1760 [facility] 502 [place], [place] [phone] documented as of this encounter Visit Diagnoses Not on filedocumented in this encounter Care Teams [place] Actor Relationship Specialty Start Date End Date Dejon Lund MD [address] [place] [address] PCP - General Family Medicine 12/30/21 documented as of this encounter
--- OUTSIDE RECORDS SUMMARY | 2025-02-03 12:26 | XMS_ITS | Encounter Summary ---
Author Organization [facility] Address [address] [place] [address] Care Team Providers Care Glassblower Name Role Phone Pascual Mckeon MD Primary Care Provider [phone] Encounter Details Date Type Department Care Team (Late st Contact Info) Description 10/05/2022 Orders Only External Location [address] [place] [address] Provider, External Social History Tobacco Use Types [...] on filedocumented in this encounter Care Teams Glassblower Relationship Specialty Start Date End Date Pascual Mckeon MD [address] [place] [address] [address] [place] [address] PCP - General 11/20/20 documented as of this encounter
--- OUTSIDE RECORDS SUMMARY | 2025-02-03 12:26 | XMS_ITS | Encounter Summary ---
[facility] [address] [place] [address] Care Team Providers Care Corrosion Control Engineer Name Role Phone Dejon Lund MD Primary Care Provider + Reason for Referral * Consultation (Routine) - Closed Specialty Diagnoses / Procedures Referred By Contac t Referred To Contact Podiatry Diagnoses Intractable right heel pain Procedures WI OFFICE/OUTPATIENT NEW MODERATE MDM 45 MINUTES Dejon Lund MD 210 [facility] [place] [address] Phone: tel: fax: Shobha Alamo, DPM 12[address] [facility] [address] [place] [address] Phone: tel: fax: Referral ID Status Reason Start Date Expiration Date V isits Requested Visits Authorized [id number] Closed Specialty Services Required 12/19/2024 03/20/2026 1 1 Reason for Visit * Reason Onset Date Comments PAIN IN RIGHT HEEL 12/19/2024 Encounter Details Date Type Department Care Team (Late st Contact Info) Description 12/19/2024 Telephone [facility] FAMILY MEDICINE [address] [place] [address] Dejon Lund MD [address] [place] [address] PAIN IN RIGHT HEEL Social History Tobacco Use Types Packs/Day Years [...] Telephone Encounter - Lanie Rollins MA - 12/19/2024 3:04 PM EDT Informed pt * Telephone Encounter - Dejon Lund MD - 12/19/2024 1:27 PM EDT A referral has been placed to the manager instrumentation at [facility] * Telephone Encounter - Samuel Pal - 12/19/2024 11:03 AM EDT PATIENT HAS CALLED AND STATED HE IS HAVING CONTINUED PAIN IN HEEL OF RIGHT FOOT. PATIENT IS REQUESTING IF PCP CAN REFER HIM TO [facility]O PAINTER AND GIVE HIM A CALL BACK TO ADVISE ON NEXT STEPS IN PLANOF CARE. CALL BACK NUMBER IS [phone] documented in this encounter Plan of Treatment Upcoming Encounters Date Type Department Care Team (Late st Contact Info) Description 02/11/2025 8:00 AM EDT Office Visit [facility] ENDOCRINOLOGY [address] [address] Мария Masters PA-C [address] [address] 02/13/2025 9:15 AM EDT Office Visit [facility] FAMILY MEDICINE [address] [place] [address] Dejon Lund MD [address] [place] [address] 05/19/2025 9:00 AM EST Office Visit [facility] UROLOGY 3000 [facility] 340 [place] [address] Rocco Bashir MD 1760 [facility] 502 [place] [address] documented as of this encounter Visit Diagnoses Diagnosis Intractable right heel pain- Primary documented in this encounter Care Teams Corrosion Control Engineer Relationship Specialty Start Date End Date Dejon Lund MD [address] [place] [address] PCP - General Family Medicine 12/30/21 documented as of this encounter
--- OUTSIDE RECORDS SUMMARY | 2025-02-03 12:26 | XMS_ITS | Clinical Summary ---
[facility] Address [address] [place] [address] Care Team Providers Care Hot Worker Name Role Phone Dejon Lund MD Primary Care Provider + Allergies Active Allergy Reactions Criticality Noted Date Comments Penicillins Rash Low 12/30/2021 Medications nitrofurantoin, macrocrystal-mon ohydrate, (MACROBID) 100 MG capsuleIndicatio ns:Recurrent UTI Take 1 capsule by mouth Every Night. 90 capsule 3 11/12/19 25 Active amLODIPine (NORVASC) 10 MG tabletIndication s:Essential hypertension Take 1 tablet by mouth Daily. 90 tablet 1 11/13/19 25 Active glipizide (GLUCOTROL XL) 10 MG 24 hr tabletIndication s:Type 2 diabetes mellitus with hyperglycemia, with long-term current use of insulin Take 2 tablets by mouth Daily. 180 tablet 1 11/13/19 25 Active meloxicam (MOBIC) 15 MG tabletIndication s:Arthritis of hand, unspecified laterality Take 1 tablet by mouth Daily. 90 tablet 1 11/13/19 25 Active omeprazole (priLOSEC) 20 MG capsule Take 1 capsule by mouth Daily. 90 capsule 1 11/13/19 25 Active Semaglutide, 2 MG/DOSE, (Ozempic, 2 MG/DOSE,) 8 MG/3ML solution pen-injectorIndi cations:Type 2 diabetes mellitus with hyperglycemia, with long-term current use of insulin Inject 2 mg under the skin into the appropriate area as directed 1 (One) Time Per Week. 3 mL 5 11/13/19 25 Active metFORMIN (GLUCOPHAGE) 1000 MG tabletIndication s:Type 2 diabetes mellitus with hyperglycemia, with long-term current use of insulin Take 1 tablet by mouth 2 (Two) Times a Day With Meals. 180 tablet 11/13/19 25 Active lisinopril-hydro chlorothiazide (PRINZIDE,ZESTOR ETIC) 20-12.5 MG per tabletIndication s:Essential hypertension Take 1 tablet by mouth Daily. 90 tablet 1 11/13/19 25 Active Continuous Glucose Sensor (FreeStyle Charles 3 Plus Sensor)Indicatio ns:Type 2 diabetes mellitus with hyperglycemia, with long-term current use of insulin Use Every 15 (Fifteen) Days. 2 each 12/25/19 25 Active Additional Information Patient not taking.Reported on 01/16/2025 Continuous Glucose Packaging Line Operator (FreeStyle Charles 3 T[place]ah) deviceIndication s:Type 2 diabetes mellitus with hyperglycemia, with long-term current use of insulin Use 1 each Daily. 1 each 12/25/19 25 Active Additional Information Patient not taking.Reported on 01/16/2025 simvastatin (ZOCOR) 40 MG tabletIndication s:Hypercholester olemia Take 1 tablet by mouth Every Night. 90 tablet 1 12/28/19 25 Active nystatin (MYCOSTATIN) 685855 UNIT/GM cream 01/15/20 25 Active empagliflozin (Jardiance) 10 MG tablet tabletIndication s:Type 2 diabetes mellitus with hyperglycemia, with long-term current use of insulin Take 1 tablet by mouth Daily. 01/17/20 25 Active Insulin NPH Isophane & Regular (70-30) 100 UNIT/ML suspension pen-injectorIndi cations:Type 2 diabetes mellitus with hyperglycemia, with long-term current use of insulin 80 units sc with breakfast and 60 units sc with dinner 15 mL 3 01/17/20 25 Active sulfamethoxazole -trimethoprim (Bactrim DS) 800-160 MG per tabletIndication s:Acute cystitis without hematuria Take 1 tablet by mouth 2 (Two) Times a Day. 10 tablet 11/14/19 25 025 Discontin ued(*Ther apy completed ) Insulin NPH Isophane & Regular (70-30) 100 UNIT/ML suspension pen-injectorIndi cations:Type 2 diabetes mellitus with hyperglycemia, with long-term current use of insulin 80 units sc with breakfast and 40 units sc with dinner 15 mL 3 12/04/19 25 025 Discontin ued(Reord er) Active Problems Problem Noted Date Diagnosed Date Anterior urethral stricture 11/02/2022 Class 3 severe obesity due t o excess calories with serious comorbidity and body mass index (BMI) of 40.0 to 44.9 in adult 09/12/2022 Assessment & Plan (09/12/2022 10:55 AM EST): BMI stable While there is no formal exercise patiently meets a step count of 8-10,000 or more steps per day through his employment. Dietary changes are slower to occur although Hussein is allowing for reduction in portion size and patient is noticing less affinity for sugary sweetened foods. Type 2 diabetes mellitus wit h hyperglycemia, with long-term current use of insulin 06/16/2022 Assessment & Plan (01/16/2025 1:06 PM EDT): Control is worsening Restart Jardiance and monitor closely for UTI recurrence Increase Novolin 70/30 to 80 units in a.m. and 60 units in evening Cont. Ozempic and metformin Swelling occurred with pioglitazone Will DC glipizide at f/u Applied Freestyle Charles 3 plus in office Refer to Endocrinology Assessment & Plan (08/13/2024 8:38 AM EST): Control has worsened. Increase glargine to 60 units nightly. Contact office in 1 week with fasting glucose log. Anticipate need to increase glargine more. Continue metformin and Ozempic at this time Assessment & Plan (05/13/2024 9:17 AM EST): Control is worsening. Add glargine insulin 15 units qhs. Increase to 20 units in 1 week if a.m glu<120. review glucose log at end of month. Discontinuation of Jardiance seems to have contributed to hyperglycemia. He will remain off the medication at this time but plan will be for reinitiation of medicine once urinary symptoms and issues have improved. Assessment & Plan (10/20/2023 12:23 PM EDT): Diabetes is worsening. Medication changes per orders. Diabetes will be reassessed in 3 months Diabetes is anticipated to be poorly controlled due to his inability to obtain as he was prescribed. He is only restarted the P1 agonist within the last 2 weeks and plan is to uptitrate the Ozempic to a total of 2 mg weekly. Patient will follow-up in 4 weeks Assessment & Plan (12/15/2022 9:10 AM EDT): Diabetes is improving with treatment. Continue current treatment regimen. Dietary recommendations for ADA diet. Regular aerobic exercise. Diabetes will be reassessed in 6 months. Assessment & Plan (09/12/2022 10:52 AM EST): A1c remains above goal. Continue escalation of Mounjaro to max dosing of 15 mg over the next 2 months. RTO 3 months for repeat A1c Assessment & Plan (06/16/2022 9:52 AM EST): Diabetes is unchanged. Regular aerobic exercise. Medication changes per orders. Diabetes will be reassessed in 6 months. Discontinue Trulicity in favor of Mounjaro.Implantable caring thePlan will be to uptitrate Mounjaro to maximum dose of 15 mg in between now and the patient's next visit. Essential hypertension 06/16/2022 Assessment & Plan (10/20/2023 12:22 PM EDT): Hypertension is stable and controlled Continue current treatment regimen. Blood pressure will be reassessed in 6 months. Assessment & Plan (12/15/2022 9:10 AM EDT): Hypertension is unchanged. Continue current treatment regimen. Blood pressure will be reassessed at the next regular appointment. Assessment & Plan (09/12/2022 10:52 AM EST): Elevated today in office but recent numbers have shown control. No adjustment at today's visit. Recommended monitoring closely as an outpatient Assessment & Plan (06/16/2022 9:51 AM EST): Hypertension is improving with treatment. Continue current treatment regimen. Dietary sodium restriction. Weight loss. Regular aerobic exercise. Continue current medications. Ambulatory blood pressure monitoring. Blood pressure will be reassessed at the next regular appointment. Hypercholesterolemia 06/16/2022 Assessment & Plan (10/20/2023 12:22 PM EDT): Lipid abnormalities are stable Plan: Continue same medication/s without change. Discussed medication dosage, use, side effects, and goals of treatment in detail. Counseled patient on lifestyle modifications to help control hyperlipidemia. Patient Treatment Goals: LDL goal is less than 70 Followup in 6 months. Assessment & Plan (06/16/2022 9:51 AM EST): Lipid abnormalities are improving with treatment. Pharmacotherapy as ordered. Lipids will be reassessed Today. Encounters Date Type Department Care Team Description 01/28/2025 Telephone [facility] [address] [phone] Dejon Lund MD Prior Authorization (Humulin 70/30 ) 01/21/2025 Telephone [facility] [address] [phone] Dejon Lund MD MEDICATION QUESTIONS 01/18/2025 Refill [facility] [address] [phone] Dejon Lund MD 01/16/2025 12:15 PM EDT Office Visit [facility] [address] [phone] Dejon Lund MD Type 2 diabetes mellitus with hyperglycemia, with long-term current use of insulin (Primary Dx); Type 2 diabetes mellitus with hyperglycemia, with long-term current use of insulin 01/16/2025 Travel 12/27/2024 Refill [facility] [address] [phone] Dejon Lund MD Hypercholesterolemia 12/20/2024 Refill [facility] [address] [phone] Dejon Lund MD Type 2 diabetes mellitus with hyperglycemia, with long-term current use of insulin 12/19/2024 Telephone [facility] [address] [place] [address] Dejon Lund MD PAIN IN RIGHT HEEL 12/03/2024 Telephone [facility] [address] [place] [address] Dejon Lund MD Advice Only 11/14/2024 Results Follow-Up [facility] [address] [place] [phone] Dejon Lund MD 11/13/2024 Results Follow-Up [facility] [address] [facility] [address] [place] [address] Rocco Bashir MD 11/12/2024 8:30 AM EDT Office Visit [facility] [address] [place] [address] Dejon Lund MD Type 2 diabetes mellitus with hyperglycemia, with long-term current use of insulin (Primary Dx); Class 3 severe obesity due to excess calories with serious comorbidity and body mass index (BMI) of 40.0 to 44.9 in adult; Essential hypertension; Hypercholesterolemia; Primary hypertension; Arthritis of hand, unspecified laterality 11/11/2024 9:40 AM EDT Office Visit [facility] [address] [facility] [address] [place] [address] Rocco Bashir MD Recurrent UTI (Primary Dx); Other stricture of anterior urethra in male; Pyuria; Urinary retention 11/11/2024 Travel 11/09/2024 Refill [facility] [address] [place] [phone] Dejon Lund MD Type 2 diabetes mellitus with hyperglycemia, with long-term current use of insulin from Last 3 Months Family History Medical History Relation Name Comments Diabetes Father Carisa barroso Arthritis Mother Mom Hyperlipidemia Mother Mom Hypertension Mother Mom Diabetes Paternal Grandmother Laz Relation Name Status Comments Father Carisa barroso Mother Mom Alive Paternal Grandmother Laz Alive Social History Tobacco Use Types Packs/Day Years [...] Mass Index 49.63 01/16/2025 12:32 PM EDT Plan of Treatment Upcoming Encounters Date Type Department Care Team (Late st Contact Info) Description 02/11/2025 8:00 AM EDT Office Visit [facility] ENDOCRINOLOGY [address] [phone] Мария Masters PA-C [address] [address] 02/13/2025 9:15 AM EDT Office Visit [facility] [address] [place] [address] Dejon Lund MD [address] [place] [address] 05/19/2025 9:00 AM EST Office Visit [facility] UR[facility] [address] [facility] [address] [place] [address] Rocco Bashir MD [address] [facility] [address] [place], [place] [id number] Health Maintenance Due Date Last Done Comments Hepatitis B (1 of 3 - 19+ 3- dose series) 1991 Pneumococcal Vaccine 50+ (1 of 2 - PCV) 1991 TDAP/TD VACCINES (1 - Tdap) 1991 COLON CANCER SCREENING 5 YEA R SIGMOIDOSCOPY [address] COLONOGRAPHY 2017 FECAL OCCULT BLOOD TEST 2017 FIT Testing (1 year) 2017 HEPATITIS C SCREENING 12/20/2021 ZOSTER VACCINE (1 of 2) 2022 DIABETIC EYE EXAM 03/31/2023 03/31/2022 (Yonny hernández-Reported (Performed Externally)) ANNUAL PHYSICAL 09/13/2023 09/12/2022 DIABETIC FOOT EXAM 09/13/2023 09/12/2022, 0 09/12/2022, 09/12/2022 COVID-19 Vaccine (1 - 2023-2 5 season) 2024 INFLUENZA VACCINE 04/09/2025 HEMOGLOBIN A1C 05/15/2025 11/12/2024, 02/0 10/2024, 05/13/2024, Additional history exists COLOGUARD 10/04/2025 10/04/2022 COLORECTAL CANCER SCREENING 10/04/2025 LIPID PANEL 11/12/2025 11/12/2024, 10/08, 06/16/2022 URINE MICROALBUMIN-CREATININ E RATIO (uACR) 01/16/2026 01/16/2025 Procedures Procedure Name Priority Date/Time Associated Diagnosis Comments POC ALBUMIN/CREATININE RATIO Routine 01/16/2025 1:05 PM EDT Type 2 diabetes mellitus with hyperglycemia, with long-term current use of insulin SCANNED EKG 01/13/2025 SCANNED - LABS 01/13/2025 SCANNED - LABS 01/13/2025 SCANNED - LABS 01/13/2025 SCANNED - LABS 01/13/2025 SCANNED - IMAGING 01/07/2025 CBC (NO DIFF) Routine 11/12/2024 9:09 AM EDT Essential hypertension COMPREHENSIVE METABOLIC PANEL Routine 11/12/2024 9:09 AM EDT Type 2 diabetes mellitus with hyperglycemia, with long-term current use of insulin Essential hypertension LIPID PANEL Routine 11/12/2024 9:09 AM EDT Type 2 diabetes mellitus with hyperglycemia, with long-term current use of insulin Hypercholesterolemia POCT GLYCOSYLATED HEMOGLOBIN (HGB A1C) Routine 11/12/2024 8:51 AM EDT Type 2 diabetes mellitus with hyperglycemia, with long-term current use of insulin URINE CULTURE Routine 11/11/2024 11:23 AM EDT Pyuria POCT URINALYSIS DIPSTICK, AUTOMATED Routine 11/11/2024 9:45 AM EDT Recurrent UTI COLOGUARD Routine 10/04/2022 10:00 PM EDT Colon cancer screening from Last 3 Months or Most Recently Relevant to Health Maintenance Results * (ABNORMAL) POC Albumin/Creatinine Ratio Urine (01/16/2025 1:05 PM EDT) POC ALBUMIN, URINE 30 mg/L POC CREATININE, URINE 10 mg/dL POC Urine Albumin Creatinine Ratio 30-300 mg/g <30 Comment:abnormal Lot Number [id number] Expiration Date 11/06/2025 Urine 01/16/2025 1:05 PM EDT us Dejon Lund MD POINT OF CARE TEST ORDER EZ Final Result * ECG Scan (01/13/2025) Dejon Lund MD ECG ORDERABLES Final Re sult * LABS SCANNED (01/13/2025) Only the most recent of4 resultswithin the time period is included. Result [facility] Dejon Lund MD LAB BLOOD ORDERABLES Fin al Result * IMAGING SCANNED (01/07/2025) Anatomical Region Laterality Modality Radiographic Mindy ging Result [facility] Dejon Lund MD IMG DIAGNOSTIC IMAGING O RDERABLES Final Result * (ABNORMAL) CBC (No Diff) (11/12/2024 9:09 AM EDT) WBC 7.79 3.40 - 10.80 10*3/mm3 [facility] RBC 5.78 4.14 - 5.80 10*6/mm3 [facility] Hemoglobin 15.6 13.0 - 17.7 g/dL [facility] Hematocrit 50.4 37.5 - 51.0 % [facility] MCV 87.2 79.0 - 97.0 fL [facility] MCH 27.0 26.6 - 33.0 pg [facility] MCHC 31.0(L) 31.5 - 35.7 g/dL [facility] RDW 14.3 12.3 - 15.4 % [facility] Platelets 261 140 - 450 10*3/mm3 [facility] Blood 11/12/2024 9:09 AM EDT 11/12/2024 Narrative [facility] ([facility]ATORY) - 11/13/2024 3:07 AM EDT Performed at: [address] [id number] Housekeeping Room Attendant: Kenn Hughes MD, Phone: [phone] Patient Fasting: N Result [facility] Dejon Lund MD LAB BLOOD ORDERABLES Fin al Result [facility] (AMBULATORY) [address] [place] [address], [facility] [address] [place] [address], * (ABNORMAL) Lipid Panel (11/12/2024 9:09 AM EDT) [facility] Total Cholesterol 119 0 - 200 mg/dL [facility] Comment: Cholesterol Reference Ranges (U.S. Department of Health and Human Services ATP III Classifications) Desirable <200 mg/dL Borderline High 200-239 mg/dL High Risk >240 mg/dL Triglyceride Reference Ranges (U.S. Department of Health and Human Services ATP III Classifications) Normal <150 mg/dL Borderline High 150-199 mg/dL High 200-499 mg/dL Very High >500 mg/dL HDL Reference Ranges (U.S. Department of Health and Human Services ATP III Classifications) Low <40 mg/dl (major risk factor for CHD) High >60 mg/dl ('negative' risk factor for CHD) LDL Reference Ranges (U.S. Department of Health and Human Services ATP III Classifications) Optimal <100 mg/dL Near Optimal 100-129 mg/dL Borderline High 130-159 mg/dL High 160-189 mg/dL Very High >189 mg/dL LDL is calculated using the NIH LDL-C calculation. Triglycerides 214(H) 0 - 150 mg/dL [facility] HDL Cholesterol 34(L) 40 - 60 mg/dL [facility] VLDL Cholesterol Savage 35 5 - 40 mg/dL [facility] LDL Chol Calc (NIH) 50 0 - 100 mg/dL [facility] Blood 11/12/2024 9:09 AM EDT 11/12/2024 Narrative [facility] ([facility]) - 11/13/2024 3:07 AM EDT Performed at: [address] [place] [id number] Housekeeping Room Attendant: Kenn Hughes MD, Phone: [phone] Patient Fasting: N Dejon Lund MD LAB BLOOD ORDERABLES Fin al Result [facility] ([facility]ATORY) [address] [place] [address], [place] [phone] [facility] [address] [place] [address], * (ABNORMAL) Comprehensive Metabolic Panel (11/12/2024 9:09 AM EDT) Glucose 267(H) 65 - 99 mg/dL [facility] BUN 13 6 - 20 mg/dL [facility] Creatinine 0.77 0.76 - 1.27 mg/dL [facility] EGFR Result 107.7 >60.0 mL/min/1.7 3 [facility] Comment: GFR Categories in Chronic Kidney Disease (CKD) GFR Category GFR (mL/min/1.73) Interpretation G1 90 or greater Normal or high (1) G2 60-89 Mild decrease (1) G3a 45-59 Mild to moderate decrease G3b 30-44 Moderate to severe decrease G4 15-29 Severe decrease G5 14 or less Kidney failure (1)In the absence of evidence of kidney disease, neither GFR category G1 or G2 fulfill the criteria for CKD. eGFR calculation 2020 CKD-EPI creatinine equation, which does not include race as a factor BUN/Creatinine Ratio 16.9 7.0 - 25.0 [facility] Sodium 136 136 - 145 mmol/L [facility] Potassium 4.9 3.5 - 5.2 mmol/L [facility] Chloride 97(L) 98 - 107 mmol/L [facility] Total CO2 23.2 22.0 - 29.0 mmol/L [facility] Calcium 9.5 8.6 - 10.5 mg/dL [facility] Total Protein 7.1 6.0 - 8.5 g/dL [facility] Albumin 4.6 3.5 - 5.2 g/dL [facility] Globulin 2.5 gm/dL [facility] A/G Ratio 1.8 g/dL [facility] Total Bilirubin 0.3 0.0 - 1.2 mg/dL [facility] Alkaline Phosphatase 127(H) 39 - 117 U/L [facility] AST (SGOT) 27 1 - 40 U/L [facility] ALT (SGPT) 43(H) 1 - 41 U/L [facility] Blood 11/12/2024 9:09 AM EDT 11/12/2024 Narrative [facility] (AMBULATORY) - 11/13/2024 3:07 AM EDT Performed at: [address] [id number] Housekeeping Room Attendant: Kenn Hughes MD, Phone: [phone] Patient Fasting: N Dejon Lund MD LAB BLOOD ORDERABLES Fin al Result Performing Organization Address City/[facility]/ZIP Co de Phone Number [facility] (AMBULATORY) [address] [place] [address], [place] [phone] [facility] [address] [place] [address], [place] [phone] * (ABNORMAL) POC Glycosylated Hemoglobin (Hb A1C) (11/12/2024 8:51 AM EDT) Hemoglobin A1C 9.3(A) 4.5 - 5.7 % [facility] Lot Number [id number] [facility] Expiration Date 06/11/2026 [facility] Blood 11/12/2024 8:51 AM EDT Dejon Lund MD POINT OF CARE TEST ORDER EZ Final Result Performing Organization Address [facility]/ZIP Co de Phone Number [facility]
[address] [place] [phone], * Urine Culture - Urine, Urine, Clean Catch (11/11/2024 11:23 AM EDT) Urine Culture >100,000 CFU/mL Normal Urogenital Tara KENDELL 11/13/2024 9:29 AM EDT [facility] Urine Urine specimen obtained by clean catch procedure / Unknown Collection / Unknown 11/11/2024 11:23 AM EDT 11/11/2024 11:23 AM EDT Narrative [facility] - 11/13/2024 9:29 AM EDT Colonization of the urinary tract without infection is common. Treatment is discouraged unless the patient is symptomatic, , or undergoing an invasive urologic procedure. us Rocco Bashir MD MICROBIOLOGY - GENERAL ORD ERABLES Final Result Performing Organization Address [facility]/ZIP Co de Phone Number [facility]
[address] [place] [address], [place] [phone] * (ABNORMAL) POC Urinalysis Dipstick, Automated (11/11/2024 9:45 AM EDT) Color Yellow Yellow, Straw, Dark Yellow, Marta [facility] Clarity, UA Cloudy(A) Clear [facility] Specific Jadwin 1.015 1.005 - 1.030 [facility] pH, Urine 6.0 5.0 - 8.0 [facility] Leukocytes Small (1+)(A) Negative [facility] Nitrite, UA Negative Negative [facility] Protein, POC Negative Negative mg/dL [facility] Glucose, UA 3+(A) Negative mg/dL [facility] Ketones, UA Negative Negative [facility] Urobilinogen, UA Normal Normal, 0.2 E.U./dL [facility] Bilirubin Negative Negative [facility] Blood, UA 1+(A) Negative [facility] Lot Number [id number] [facility] Expiration Date 03/28/26 [facility] Urine 11/11/2024 9:45 AM EDT us Rocco Bashir MD POINT OF CARE TEST ORDERAB LES Final Result Performing Organization Address [facility]/ZIP Co de Phone Number [facility]
[address] [place] [address], [place] [phone] * Cologuard - Stool, Per Rectum (10/04/2022 10:00 PM EDT) Cologuard Negative Negative 10/13/2022 5:19 AM EDT [facility] (CLIA #:[id number]) Comment: NEGATIVE TEST RESULT. A negative Cologuard result indicates a low likelihood that a colorectal cancer (CRC) or advanced adenoma (adenomatous polyps with more advanced pre-malignant features) is present. The chance that a person with a negative Cologuard test has a colorectal cancer is less than 1 in 1500 (negative predictive value >99.9%) or has an advanced adenoma is less than 5.3% (negative predictive value 94.7%). These data are based on a prospective cross-sectional study of 10,000 individuals at average risk for colorectal cancer who were screened with both Cologuard and colonoscopy. (Reagan Gonzáles. et al, N Engl J Med 2014;370(14):1075-2743) The normal value (reference range) for this assay is negative. COLOGUARD RE-SCREENING RECOMMENDATION: Periodic colorectal cancer screening is an important part of preventive healthcare for asymptomatic individuals at average risk for colorectal cancer. Following a negative Cologuard result, the [place] [employer] and U.S. Multi-Society Task Force screening guidelines recommend a Cologuard re-screening interval of 3 years. References: [place] [employer] Guideline for Colorectal Cancer Screening: https://www.cancer.org/cancer/nyuss-hurgpd-vcgcda/mzrlomoxl-zjkagocea-sodvxha/ac s-rec ommendations.html.; Don DUNBAR, Igor ANTOINE, Kian HaywardK, Colorectal Cancer Screening: Recommendations for Physicians and Patients from the U.S. Multi-Society Task Force on Colorectal Cancer Screening , Am J Gastroenterology 2017; 112:0542-4362. TEST DESCRIPTION: Composite algorithmic analysis of stool DNA-biomarkers with hemoglobin immunoassay. Quantitative values of individual biomarkers are not reportable and are not associated with individual biomarker result reference ranges. Cologuard is intended for colorectal cancer screening of adults of either sex, 45 years or older, who are at average-risk for colorectal cancer (CRC). Cologuard has been approved for use by the U.S. FDA. The performance of Cologuard was established in a cross sectional study of average-risk adults aged 50-84. Cologuard performance in patients ages 45 to 49 years was estimated by sub-group analysis of near-age groups. Colonoscopies performed for a positive result may find as the most clinically significant lesion: colorectal cancer [4.0%], advanced adenoma (including sessile serrated polyps greater than or equal to 1cm diameter) [20%] or non- advanced adenoma [31%]; or no colorectal neoplasia [45%]. These estimates are derived from a prospective cross-sectional screening study of 10,000 individuals at average risk for colorectal cancer who were screened with both Cologuard and colonoscopy. (Reagan Leggett et al, N Engl J Med 2014;370(14):2853-1639.) Cologuard may produce a false negative or false positive result (no colorectal cancer or precancerous polyp present at colonoscopy follow up). A negative Cologuard test result does not guarantee the absence of CRC or advanced adenoma (pre-cancer). The current Cologuard screening interval is every 3 years. ([place] [employer] and [place] Multi-Society Task Force). Cologuard performance data in a 10,000 patient pivotal study using colonoscopy as the reference method can be accessed at the following location: www.[employer]/results. Additional description of the Cologuard test process, warnings and precautions can be found at www.cologuard.com. Stool specimen (specimen) Specimen from rectum / Unknown 10/04/2022 10:00 PM EDT 10/06/2022 2:36 PM EDT Dejon Lund MD BODY FLUIDS AND STOOLS O RDERABLES Final Result [facility] (CLIA #:[id number]) [address] [place] [address], from Last 3 Months or Most Recently Relevant to Health Maintenance [place] [address] [address] PPO Care Teams Hot Worker Relationship Specialty Start Date End Date Dejon Ludn MD [address] [place] [address] PCP - General Family Medicine 12/30/21
--- OUTSIDE RECORDS SUMMARY | 2025-02-03 12:26 | XMS_ITS | Encounter Summary ---
[facility] [address] [place] [id number] Care Team Providers Care Medical Physiologist Name Role Phone Dejon Bhandari MD Primary Care Provider + Reason for Visit * Reason Onset Date Comments Med Refill 12/20/2024 Encounter Details Date Type Department Care Team (Late st Contact Info) Description 12/20/2024 Refill [facility] FAMILY MEDICINE [address] [place] [address] Dejon Bhandari MD [address] [place] [address] Type 2 diabetes mellitus with [...] as of this encounter Progress Notes * Dejon Bhandari MD - 12/24/2024 7:35 AM EDTAddended by: DEJON BHANDARI on: 12/24/2024 07:35 AM Modules accepted: Orders documented in this encounter Miscellaneous Notes * Telephone Encounter - Lanie Rollins MA - 12/23/2024 5:58 PM EDT I have already got the issue solved with his insulin. All he needs is you to send in an Rx for a CGM to [facility] for him. * Telephone Encounter - Lisa Hu RegSched Rep - 12/23/2024 10:41 AM EDT PATIENT MADE CONTACT TO CHECK THE STATUS OF MEDICATION/INSULIN REFILL FROM LAST MONDAY, 12/20 PATIENT STATED HE HAS BEEN OUT SINCE MONDAY, 12/19 Insulin NPH Isophane & Regular (70-30) 100 UNIT/ML suspension pen-injector [facility] [place] TELEPHONE CONTACT: [phone] PATIENT ALSO REQUESTED A NEW GLUCOSE CONTINUOUS MONITOR KIT PRESCRIPTION FOR THE MONITOR IS TO BE FORWARDED TO [facility] * Telephone Encounter - Adrian Lorenzo RegSched Rep - 12/20/2024 4:27 PM EDT Caller: Apolinar Nesbitt Relationship: Self Best call back number: [phone] Requested Prescriptions: Requested Prescriptions Pending Prescriptions Disp Refills Insulin NPH Isophane & Regular (70-30) 100 UNIT/ML suspension pen-injector 15 mL 3 Si units sc with breakfast and 40 units sc with dinner Pharmacy where request should be sent: [facility] [place] - [address] [phone] [facility] [phone] Last office visit with prescribing clinician: 11/12/2024 Last telemedicine visit with prescribing clinician: Visit date not found Next office visit with prescribing clinician: 02/13/2025 Additional details provided by patient: Does the patient have less than a 3 day supply: [x] Yes [] No Would you like a call back once the refill request has been completed: [] Yes [x] No If the office needs to give you a call back, can they leave a voicemail: [] Yes [x] No Celina Negron 12/20/24 16:28 EDT documented in this encounter Plan of Treatment Upcoming Encounters Date Type Department Care Team (Late st Contact Info) Description 02/11/2025 8:00 AM EDT Office Visit [facility] ENDOCRINOLOGY [address] [address] Мария Masters PA-C [address] [phone] 02/13/2025 9:15 AM EDT Office Visit [facility] FAMILY MEDICINE [address] [place] [phone] Dejon Bhandari MD [address] [place] [address] 05/19/2025 9:00 AM EST Office Visit [facility] UROLOGY [address] [facility] [address] [place] [phone] [place] [address] [place] [address] [address] [place] [address] documented as of this encounter Visit Diagnoses Diagnosis Type 2 diabetes mellitus with hyperglycemia, with long-term current use of insulin documented in this encounter Care Teams Medical Physiologist Relationship Specialty Start Date End Date Dejon Bhandari MD [address] [place] [address] PCP - General Family Medicine 12/30/21 documented as of this encounter
--- OUTSIDE RECORDS SUMMARY | 2025-02-03 12:26 | XMS_ITS | Encounter Summary ---
[facility] [address] [place] [phone] Care Team Providers Care Rubber Stamp Assembler Name Role Phone Dejon Lund MD Primary Care Provider + Reason for Visit * Reason Onset Date Comments Med Refill 03/31/2022 Encounter Details Date Type Department Care Team (Late st Contact Info) Description 03/31/2022 Refill [facility] FAMILY MEDICINE [address] [place] [address] Dejon Lund MD [address] [place] [address] Hand arthritis Social History Tobacco Use Types Packs/Day Years Used Date Smoking Tobacco: Never Smokeless Tobacco: Never Alcohol Use Standard Drinks/Week Comments Never 0 (1 standard drink = 0.6 oz pur e alcohol) PHQ-2 Answer Date Recorded Retired PHQ-9: Brief Depression Severity Measure Score 0 12/30/2021 Sex and Gender Information Value Date Recorded Sex Assigned at Not on file Legal Sex Male 4:08 PM EDT Gender Identity Not on file Sexual Orientation Not on file documented as of this encounter Miscellaneous Notes * Telephone Encounter - Dejon Lund MD - 04/01/2022 1:57 PM EDT New rx sent * Telephone Encounter - Marlene Love RegSched Rep - 03/31/2022 12:34 PM EDT Pt would like a refill on glipizide 10mg needs to be refilled pt is out was prescribed at other office not on med list documented in this encounter Plan of Treatment Upcoming Encounters Date Type Department Care Team (Late st Contact Info) Description 02/11/2025 8:00 AM EDT Office Visit [facility] ENDOCRINOLOGY [address] [facility] [address] [place] [address] Мария Masters PA-C [address] [facility] [address] [place], [place] [phone] 02/13/2025 9:15 AM EDT Office Visit [facility] FAMILY MED[facility]INE [address] [place] [address] Dejon Lund MD [address] [place] [address] 05/19/2025 9:00 AM EST Office Visit [facility] UROLOGY [address] [facility] [address] [place] [phone] Rocco Bashir MD [address] [facility] [address] [place] [address] documented as of this encounter Visit Diagnoses Diagnosis Hand arthritis Unspecified arthropathy, hand documented in this encounter Care Teams Rubber Stamp Assembler Relationship Specialty Start Date End Date Dejon Lund MD [address] [place], [place] [phone] PCP - General Family Medicine 12/30/21 documented as of this encounter
== END 2025-01-31 23:59 ==
LOC: LAB.DROPOF 02-03 12:24
PROVIDERS: PCP Family Medicine; Visit Provider Student in an Organized Health Care Education/Training Program
DX: N39.0 Urinary tract infection, site not specified (principal)
CPT/HCPCS: 87086; 87088; 87186